=== PATIENT | female | born 1950 | race Caucasian/White ===

== ENCOUNTER 2017-10-23 20:00 | Inpatient (IN) | payer MEDICARE, MEDICAID ==
[~2017-10-23] VITALS: Ht 175.3 cm; Wt 52.2 kg
[~2017-10-23 20:00] MED LIST: BENA20TA3 PO; CLON0.5T23 PO; DULO60CA44 PO; FLUT1DIS3 IH
[2017-10-23 21:36] LABS: BASOPHILS % 0.6 % (0.0-2.0); CHLORIDE 92 mEq/L (98-107); EOSINOPHILS % 5.1 % (0.0-5.0); HEMATOCRIT. 36.3 % (36.0-48.0); HEMOGLOBIN. 11.8 g/dL (12.0-16.0); LYMPHOCYTES % 20.6 % (20.0-50.0); MEAN CORPUSCULAR HEMOGLOBIN 30.8 pg (28.0-32.0); MEAN CORPUSCULAR VOLUME 94.6 fL (81.0-99.0); MONOCYTES % 6.9 % (2.0-8.0); NEUTROPHILS % 66.8 % (40.0-76.0); PLATELET 275 x1000/uL (130-400); RED BLOOD CELL COUNT 3.83 mill/uL (4.2-5.4); RED CELL DISTRIBUTION WIDTH 13.1 % (11.6-14.6)
[2017-10-23 21:38] LABS: PROTHROMBIN TIME 10.4 sec (9.4-11.6)
[2017-10-23 21:49] LABS: CARBON DIOXIDE 43 mEq/L (21-32)
[2017-10-23] MEDS ORDERED: CEFTRIAXONE 1 G PREMIX 50 ML IV ONE (22:15)
[2017-10-23] MEDS ORDERED: AZITHROMYCIN 500 MG in DEXT 5% WATER 250 ML IV ONE (22:15)
[2017-10-23] MEDS ORDERED: SODIUM CHLORIDE 0.9% 1,000 ML IV SCH (22:29)
[2017-10-23] MEDS ORDERED: ACETAMINOPHEN 325MG TABLET PO PRN (22:30)
[2017-10-23] MEDS ORDERED: LEVOFLOXACIN 750MG PREMIX 150 ML IV ONE (22:30)
[2017-10-24] MEDS ORDERED: DULOXETINE HCL 60MG DR CAPSULE PO NR (01:00)
[2017-10-24] MEDS ORDERED: ENOXAPARIN 40MG/0.4ML SYR SUBCUT NR (01:15)
[2017-10-24] MEDS ORDERED: NITROGLYCERIN 0.4MG TABLET SL SL PRN (04:30)
[2017-10-24 05:17] LABS: HEMATOCRIT 34.3 % (36.0-48.0); HEMOGLOBIN 11.2 g/dL (12.0-16.0); MEAN CORPUSCULAR HEMOGLOBIN 30.7 pg (28.0-32.0); MEAN CORPUSCULAR VOLUME 94.3 fL (81.0-99.0); PLATELET 258 x1000/uL (130-400); RED BLOOD CELL COUNT 3.64 mill/uL (4.2-5.4); RED CELL DISTRIBUTION WIDTH 13.2 % (11.6-14.6)
[2017-10-24 05:45] LABS: CARBON DIOXIDE 37 mEq/L (21-32); CHLORIDE 96 mEq/L (98-107)
[2017-10-24] MEDS: SODIUM CHLORIDE 0.9% INJ 3ML FLUSH IVF SCH ×3 (06:00→21:59)
[2017-10-24] MEDS ORDERED: PREDNISONE 20MG TABLET PO SCH (09:00)
[2017-10-24 09:30] VITALS: BP 143/86
[2017-10-24] MEDS ORDERED: DOCUSATE SODIUM 100MG CAPSULE PO PRN (09:34)
[2017-10-24] MEDS ORDERED: ZOLP10TA6 PO (10:18)
[2017-10-24] MEDS ORDERED: FLUT1DIS6 IH (10:18)
[2017-10-24] MEDS ORDERED: HYDR-3280 PO (10:21)
[2017-10-24] MEDS ORDERED: HYDROCODONE/ACETAMINOPHEN 5/325MG TABLET PO NR (10:38)
[2017-10-24] MEDS: ENOXAPARIN 40MG/0.4ML SYR SUBCUT SCH (11:00)
[2017-10-24] MEDS: BUDESONIDE 0.5MG/2ML NEB HHN SCH (11:16)
[2017-10-24] MEDS: IPRATROPIUM/ALBUTEROL 0.5-3(2.5)MG/3ML NEB INH PRN ×2 (11:16→13:51)
[2017-10-24 12:00] VITALS: BP 138/78
[2017-10-24] MEDS: METHYLPREDNISOLONE SOD SUCC 40 MG/ML VIAL IV SCH ×2 (13:15→21:59)
[2017-10-24] MEDS: CLONAZEPAM 1MG TABLET PO SCH ×2 (13:15→21:59)
[2017-10-24 16:00] VITALS: BP 129/72
[2017-10-24 20:00] VITALS: BP 152/81
[2017-10-24] MEDS ORDERED: LEVOFLOXACIN 500MG PREMIX 100 ML IV SCH (23:00)
[2017-10-24] MEDS: GUAIFENESIN 200MG/10ML SUGAR FREE UDC PO PRN (23:16)
[2017-10-24] MEDS: HYDROCODONE/ACETAMINOPHEN 5/325MG TABLET PO PRN (23:26)
[2017-10-25] VITALS: BP 127/79
[2017-10-25] MEDS: TEMAZEPAM 15MG CAPSULE PO PRN (01:14)
[2017-10-25] MEDS: BUDESONIDE 0.5MG/2ML NEB HHN SCH ×3 (02:23→21:43)
[2017-10-25] MEDS: IPRATROPIUM/ALBUTEROL 0.5-3(2.5)MG/3ML NEB INH PRN ×4 (02:23→21:43)
[2017-10-25 04:00] VITALS: BP 125/65
[2017-10-25] MEDS: CLONAZEPAM 1MG TABLET PO SCH ×3 (06:00→22:35)
[2017-10-25] MEDS: SODIUM CHLORIDE 0.9% INJ 3ML FLUSH IVF SCH ×2 (06:00→22:37)
[2017-10-25 08:00] VITALS: BP 165/99
[2017-10-25] MEDS: DULOXETINE HCL 60MG DR CAPSULE PO SCH (08:54)
[2017-10-25] MEDS: METHYLPREDNISOLONE SOD SUCC 40 MG/ML VIAL IV SCH ×2 (08:54→22:35)
[2017-10-25] MEDS: ENOXAPARIN 40MG/0.4ML SYR SUBCUT SCH (09:00)
[2017-10-25] MEDS: HYDROCODONE/ACETAMINOPHEN 5/325MG TABLET PO PRN ×2 (09:30→18:35)
[2017-10-25 12:00] VITALS: BP 123/71
[2017-10-25] MEDS: AZTREONAM IV SCH (18:34)
[2017-10-25] MEDS: SODIUM CHLORIDE 0.9% IV SCH (18:34)
[2017-10-25 20:00] VITALS: BP 116/75
[2017-10-25] MEDS: LEVOFLOXACIN 500MG PREMIX 100 ML IV SCH (22:36)
[2017-10-26] VITALS: BP 118/70
[2017-10-26 04:00] VITALS: BP 128/68
[2017-10-26] MEDS: CLONAZEPAM 1MG TABLET PO SCH ×3 (05:24→21:32)
[2017-10-26] MEDS: HYDROCODONE/ACETAMINOPHEN 5/325MG TABLET PO PRN ×3 (05:24→15:14)
[2017-10-26] MEDS: SODIUM CHLORIDE 0.9% IV SCH ×2 (05:25→18:53)
[2017-10-26] MEDS: AZTREONAM IV SCH ×2 (05:25→18:53)
[2017-10-26] MEDS: SODIUM CHLORIDE 0.9% INJ 3ML FLUSH IVF SCH ×3 (05:26→20:51)
[2017-10-26 07:29] LABS: HEMATOCRIT. 36.1 % (36.0-48.0); HEMOGLOBIN. 11.9 g/dL (12.0-16.0); MEAN CORPUSCULAR HEMOGLOBIN 31.3 pg (28.0-32.0); MEAN CORPUSCULAR VOLUME 94.7 fL (81.0-99.0); MEAN PLATELET VOLUME 7.4 fl (7.4-10.4); PLATELET 279 x1000/uL (130-400); RED BLOOD CELL COUNT 3.81 mill/uL (4.2-5.4); RED CELL DISTRIBUTION WIDTH 13.4 % (11.6-14.6)
[2017-10-26 07:59] LABS: CARBON DIOXIDE 37 mEq/L (21-32); CHLORIDE 96 mEq/L (98-107)
[2017-10-26 08:00] VITALS: BP 113/74
[2017-10-26] MEDS: BUDESONIDE 0.5MG/2ML NEB HHN SCH ×2 (09:08→20:18)
[2017-10-26] MEDS: IPRATROPIUM/ALBUTEROL 0.5-3(2.5)MG/3ML NEB INH SCH ×4 (09:08→20:18)
[2017-10-26] MEDS: DULOXETINE HCL 60MG DR CAPSULE PO SCH (09:15)
[2017-10-26] MEDS: METHYLPREDNISOLONE SOD SUCC 40 MG/ML VIAL IV SCH ×2 (09:15→20:51)
[2017-10-26] MEDS: ENOXAPARIN 40MG/0.4ML SYR SUBCUT SCH (09:17)
[2017-10-26 12:00] VITALS: BP 116/74
[2017-10-26 12:45] LABS: PLATELET ESTIMATE NORMAL
[2017-10-26 16:00] VITALS: BP 137/84
[2017-10-26] MEDS: TEMAZEPAM 15MG CAPSULE PO PRN (17:29)
[2017-10-26 20:00] VITALS: BP 137/67
[2017-10-26] MEDS: LEVOFLOXACIN 500MG PREMIX 100 ML IV SCH (20:51)
[2017-10-27] VITALS: BP 126/64
[2017-10-27] MEDS: GUAIFENESIN 200MG/10ML SUGAR FREE UDC PO PRN ×2 (00:03→21:29)
[2017-10-27] MEDS ORDERED: MORPHINE SULFATE 2 MG/ML CPJ (NOT FOR IM USE) IV PRN (00:15)
[2017-10-27 04:00] VITALS: BP 117/90
[2017-10-27] MEDS: AZTREONAM IV SCH ×2 (06:03→17:44)
[2017-10-27] MEDS: SODIUM CHLORIDE 0.9% INJ 3ML FLUSH IVF SCH ×3 (06:03→21:14)
[2017-10-27] MEDS: CLONAZEPAM 1MG TABLET PO SCH ×3 (06:03→21:14)
[2017-10-27] MEDS: SODIUM CHLORIDE 0.9% IV SCH ×2 (06:03→17:44)
[2017-10-27] MEDS: BUDESONIDE 0.5MG/2ML NEB HHN SCH (07:27)
[2017-10-27] MEDS: IPRATROPIUM/ALBUTEROL 0.5-3(2.5)MG/3ML NEB INH SCH ×4 (07:27→20:02)
[2017-10-27 08:00] VITALS: BP 141/88
[2017-10-27] MEDS: METHYLPREDNISOLONE SOD SUCC 40 MG/ML VIAL IV SCH ×2 (09:45→21:14)
[2017-10-27] MEDS: DULOXETINE HCL 60MG DR CAPSULE PO SCH (09:45)
[2017-10-27] MEDS: ENOXAPARIN 40MG/0.4ML SYR SUBCUT SCH (09:46)
[2017-10-27 12:00] VITALS: BP 157/88
[2017-10-27 16:00] VITALS: BP 138/70
[2017-10-27] MEDS: HYDROCODONE/ACETAMINOPHEN 5/325MG TABLET PO PRN (17:46)
[2017-10-27 20:00] VITALS: BP 140/79
[2017-10-27] MEDS ORDERED: ZOLPIDEM TARTRATE 5MG TABLET PO PRN (21:00)
[2017-10-28] VITALS: BP 135/58
[2017-10-28] MEDS: IPRATROPIUM/ALBUTEROL 0.5-3(2.5)MG/3ML NEB INH SCH ×4 (00:18→15:56)
[2017-10-28] MEDS: ACETYLCYSTEINE 100MG/ML 10% VIAL 4ML INH SCH ×2 (00:20→09:19)
[2017-10-28 04:00] VITALS: BP 138/84
[2017-10-28] MEDS: AZTREONAM IV SCH (05:04)
[2017-10-28] MEDS: SODIUM CHLORIDE 0.9% IV SCH (05:04)
[2017-10-28] MEDS: SODIUM CHLORIDE 0.9% INJ 3ML FLUSH IVF SCH ×2 (05:05→12:52)
[2017-10-28] MEDS: CLONAZEPAM 1MG TABLET PO SCH ×2 (05:05→13:10)
[2017-10-28 08:00] VITALS: BP 146/83
[2017-10-28] MEDS: ENOXAPARIN 40MG/0.4ML SYR SUBCUT SCH (09:19)
[2017-10-28] MEDS: METHYLPREDNISOLONE SOD SUCC 40 MG/ML VIAL IV SCH (09:19)
[2017-10-28] MEDS: DULOXETINE HCL 60MG DR CAPSULE PO SCH (09:19)
[2017-10-28 12:00] VITALS: BP 146/83
[2017-10-28] MEDS: HYDROCODONE/ACETAMINOPHEN 5/325MG TABLET PO PRN (12:18)
[2017-10-28 14:12] VITALS: BP 155/89
== END 2017-10-28 17:17 | disposition home or self-care (01) | DRG 190 ==
LOC: ER 20:08 → 5WST 10-24 09:15
PROVIDERS: ADMIT Internal Medicine; ATTEND Internal Medicine
PROC: 5A09357 Assistance with Respiratory Ventilation, Less than 24 Consecutive Hours, Continuous Positive Airway Pressure (ICD-10-PCS; principal; 2017-10-25)
DX: J44.1 Chronic obstructive pulmonary disease with (acute) exacerbation (principal); J18.9 Pneumonia, unspecified organism; Z99.81 Dependence on supplemental oxygen; J44.0 Chronic obstructive pulmonary disease with (acute) lower respiratory infection; F17.200 Nicotine dependence, unspecified, uncomplicated; E78.00 Pure hypercholesterolemia, unspecified; F41.9 Anxiety disorder, unspecified; G89.29 Other chronic pain; I10 Essential (primary) hypertension; M54.5 Low back pain; Z88.0 Allergy status to penicillin; Z88.2 Allergy status to sulfonamides; Z88.8 Allergy status to other drugs, medicaments and biological substances
CPT/HCPCS: 36415; 71045; 80048; 80053; 83605; 84443; 85025; 85027; 85610; 87040; 93005; 94640; 96365; 96366; 96368; 99285; J0456; J1650; J1956; J2270; J2920; J3490; J7030; J7040; J7060; J7512; J7608; J7620; J7626

== ENCOUNTER 2018-01-02 23:14 | Inpatient (IN) | payer MEDICARE, MEDICAID ==
[~2018-01-02] VITALS: Ht 175.3 cm; Wt 53.5 kg
[~2018-01-02 23:14] MED LIST changes: -FLUT1DIS3 IH; +FLUT1DIS6 IH; +HYDR-3280 PO; +ZOLP10TA6 PO
[2018-01-02] MEDS ORDERED: METHYLPREDNISOLONE SOD SUCC 125 MG/2 ML VIAL IV STA (23:30)
[2018-01-02] MEDS ORDERED: IPRATROPIUM BROMIDE (0.02%) 0.5MG/2.5ML NEB HHN STA (23:30)
[2018-01-02] MEDS ORDERED: ALBUTEROL (0.083%) 2.5MG/3ML NEB HHN STA (23:30)
[2018-01-03 00:11] LABS: BASOPHILS % 0.1 % (0.0-2.0); EOSINOPHILS % 0.7 % (0.0-5.0); HEMATOCRIT. 33.4 % (36.0-48.0); HEMOGLOBIN. 11.1 g/dL (12.0-16.0); LYMPHOCYTES % 7.2 % (20.0-50.0); MEAN CORPUSCULAR HEMOGLOBIN 31.9 pg (28.0-32.0); MEAN CORPUSCULAR VOLUME 96.2 fL (81.0-99.0); MEAN PLATELET VOLUME 7.6 fl (7.4-10.4); MONOCYTES % 9.8 % (2.0-8.0); NEUTROPHILS % 82.2 % (40.0-76.0); PLATELET 345 x1000/uL (130-400); RED BLOOD CELL COUNT 3.47 mill/uL (4.2-5.4); RED CELL DISTRIBUTION WIDTH 13.6 % (11.6-14.6)
[2018-01-03 00:14] LABS: PROTHROMBIN TIME 10.3 sec (9.4-11.6)
[2018-01-03 00:16] LABS: CHLORIDE 90 mEq/L (98-107)
[2018-01-03] MEDS ORDERED: AZITHROMYCIN 500 MG in SODIUM CHLORIDE 0.9% 250 ML IV NR (01:00)
[2018-01-03] MEDS ORDERED: CEFTRIAXONE 1 G PREMIX 50 ML IV NR (01:00)
[2018-01-03] MEDS ORDERED: KETOROLAC 30MG/ML VIAL IV ONE (02:15)
[2018-01-03 09:00] VITALS: BP 123/65
[2018-01-03 09:45] VITALS: BP 123/65
[2018-01-03] MEDS ORDERED: AZITHROMYCIN 500 MG in DEXT 5% WATER 250 ML IV SCH (11:30)
[2018-01-03] MEDS ORDERED: CEFTRIAXONE 1 G PREMIX 50 ML IV SCH (11:30)
[2018-01-03] MEDS ORDERED: ACETAMINOPHEN 325MG TABLET PO PRN (11:30)
[2018-01-03] MEDS ORDERED: HYDROCODONE/ACETAMINOPHEN 5/325MG TABLET PO PRN (11:30)
[2018-01-03] MEDS ORDERED: CLONIDINE 0.1MG TABLET PO PRN (11:30)
[2018-01-03 12:00] VITALS: BP 98/64
[2018-01-03] MEDS: ENOXAPARIN 40MG/0.4ML SYR SUBCUT SCH ×2 (12:00→12:50)
[2018-01-03] MEDS: METHYLPREDNISOLONE SOD SUCC 40 MG/ML VIAL IV SCH ×2 (14:58→21:11)
[2018-01-03] MEDS: HYDROCODONE/ACETAMINOPHEN 5/325MG TABLET PO PRN ×2 (14:59→20:01)
[2018-01-03] MEDS: DULOXETINE HCL 60MG DR CAPSULE PO SCH (15:01)
[2018-01-03 16:00] VITALS: BP 111/62
[2018-01-03 16:14] LABS: HEMATOCRIT. 29.4 % (36.0-48.0); HEMOGLOBIN. 9.9 g/dL (12.0-16.0); MEAN CORPUSCULAR HEMOGLOBIN 32.2 pg (28.0-32.0); MEAN CORPUSCULAR VOLUME 95.7 fL (81.0-99.0); MEAN PLATELET VOLUME 7.5 fl (7.4-10.4); PLATELET 370 x1000/uL (130-400); RED BLOOD CELL COUNT 3.08 mill/uL (4.2-5.4); RED CELL DISTRIBUTION WIDTH 13.6 % (11.6-14.6)
[2018-01-03 16:33] LABS: CHLORIDE 90 mEq/L (98-107)
[2018-01-03 16:43] LABS: CREATINE KINASE 68 IU/L (26-192)
[2018-01-03 17:09] LABS: PLATELET ESTIMATE NORMAL
[2018-01-03 20:00] VITALS: BP 122/74
[2018-01-03] MEDS: IPRATROPIUM/ALBUTEROL 0.5-3(2.5)MG/3ML NEB INH PRN (20:45)
[2018-01-03] MEDS ORDERED: TEMAZEPAM 15MG CAPSULE PO PRN (20:45)
[2018-01-03] MEDS: SODIUM CHLORIDE 0.9% 1,000 ML IV SCH (21:12)
[2018-01-03] MEDS: NICOTINE 21MG PATCH TD SCH (21:12)
[2018-01-03] MEDS: FAMOTIDINE 20MG/2ML VIAL IV SCH (21:12)
[2018-01-03] MEDS: CLONAZEPAM 0.5MG TABLET PO PRN (21:15)
[2018-01-03] MEDS ORDERED: ZOLPIDEM TARTRATE 5MG TABLET PO PRN (23:30)
[2018-01-03 23:58] VITALS: BP 124/80
[2018-01-04 00:26] LABS: CREATINE KINASE 86 IU/L (26-192)
[2018-01-04 03:50] VITALS: BP 160/88
[2018-01-04] MEDS: METHYLPREDNISOLONE SOD SUCC 40 MG/ML VIAL IV SCH ×3 (06:08→21:32)
[2018-01-04] MEDS: CEFTRIAXONE 1 G PREMIX 50 ML IV SCH (06:08)
[2018-01-04 06:32] LABS: HEMATOCRIT. 27.8 % (36.0-48.0); HEMOGLOBIN. 9.2 g/dL (12.0-16.0); MEAN CORPUSCULAR VOLUME 93.8 fL (81.0-99.0); MEAN PLATELET VOLUME 7.5 fl (7.4-10.4); PLATELET 383 x1000/uL (130-400); RED BLOOD CELL COUNT 2.96 mill/uL (4.2-5.4); RED CELL DISTRIBUTION WIDTH 13.6 % (11.6-14.6)
[2018-01-04 07:11] LABS: CHLORIDE 93 mEq/L (98-107)
[2018-01-04 07:22] LABS: LDL CHOLESTEROL 80 mg/dL (5-100)
[2018-01-04 07:24] LABS: T4 FREE 1.06 ng/dL (0.76-1.46)
[2018-01-04 07:25] LABS: HDL CHOLESTEROL 41 mg/dL (40-59)
[2018-01-04 08:00] VITALS: BP 110/62
[2018-01-04] MEDS: BENAZEPRIL 20MG TABLET PO SCH (08:42)
[2018-01-04] MEDS: AZITHROMYCIN 500 MG in DEXT 5% WATER 500 ML IV SCH (08:43)
[2018-01-04] MEDS: DULOXETINE HCL 60MG DR CAPSULE PO SCH (08:43)
[2018-01-04] MEDS: FAMOTIDINE 20MG/2ML VIAL IV SCH ×2 (08:43→21:32)
[2018-01-04] MEDS: ENOXAPARIN 40MG/0.4ML SYR SUBCUT SCH (08:48)
[2018-01-04] MEDS: IPRATROPIUM/ALBUTEROL 0.5-3(2.5)MG/3ML NEB INH PRN ×2 (09:59→16:44)
[2018-01-04 11:24] LABS: PLATELET ESTIMATE NORMAL
[2018-01-04 12:00] VITALS: BP 118/68
[2018-01-04] MEDS: SODIUM CHLORIDE 0.9% 1,000 ML IV SCH ×2 (13:27→19:23)
[2018-01-04 13:50] LABS: HEMATOCRIT 30.2 % (36.0-48.0); HEMOGLOBIN 9.8 g/dL (12.0-16.0); MEAN CORPUSCULAR HEMOGLOBIN 30.6 pg (28.0-32.0); MEAN CORPUSCULAR VOLUME 94.3 fL (81.0-99.0)
[2018-01-04 13:51] LABS: PLATELET 427 x1000/uL (130-400); RED CELL DISTRIBUTION WIDTH 13.6 % (11.6-14.6)
[2018-01-04] MEDS: HYDROCODONE/ACETAMINOPHEN 5/325MG TABLET PO PRN (15:56)
[2018-01-04] MEDS: CLONAZEPAM 0.5MG TABLET PO PRN (15:57)
[2018-01-04 16:00] VITALS: BP 120/71
[2018-01-04 16:02] VITALS: BP 104/64
[2018-01-04 19:55] VITALS: BP 113/64
[2018-01-04] MEDS: NICOTINE 21MG PATCH TD SCH (21:00)
[2018-01-05] VITALS: BP 122/79
[2018-01-05 04:00] VITALS: BP 151/86
[2018-01-05] MEDS: SODIUM CHLORIDE 0.9% 1,000 ML IV SCH ×2 (05:01→19:08)
[2018-01-05] MEDS: METHYLPREDNISOLONE SOD SUCC 40 MG/ML VIAL IV SCH ×3 (06:35→21:58)
[2018-01-05] MEDS: CEFTRIAXONE 1 G PREMIX 50 ML IV SCH (06:35)
[2018-01-05 06:56] LABS: HEMATOCRIT 31.2 % (36.0-48.0); HEMOGLOBIN 10.3 g/dL (12.0-16.0); MEAN CORPUSCULAR HEMOGLOBIN 31.7 pg (28.0-32.0); MEAN CORPUSCULAR VOLUME 96.2 fL (81.0-99.0); PLATELET 424 x1000/uL (130-400); RED BLOOD CELL COUNT 3.25 mill/uL (4.2-5.4); RED CELL DISTRIBUTION WIDTH 13.6 % (11.6-14.6)
[2018-01-05 07:29] LABS: CHLORIDE 102 mEq/L (98-107)
[2018-01-05] MEDS: IPRATROPIUM/ALBUTEROL 0.5-3(2.5)MG/3ML NEB INH PRN ×2 (07:47→15:01)
[2018-01-05 08:00] VITALS: BP 144/88
[2018-01-05] MEDS: AZITHROMYCIN 500 MG in DEXT 5% WATER 500 ML IV SCH (08:03)
[2018-01-05] MEDS: DULOXETINE HCL 60MG DR CAPSULE PO SCH (08:03)
[2018-01-05] MEDS: CLONAZEPAM 0.5MG TABLET PO PRN ×2 (08:03→17:31)
[2018-01-05] MEDS: FAMOTIDINE 20MG/2ML VIAL IV SCH ×2 (08:04→21:58)
[2018-01-05] MEDS: BENAZEPRIL 20MG TABLET PO SCH (08:04)
[2018-01-05] MEDS: ENOXAPARIN 40MG/0.4ML SYR SUBCUT SCH (08:13)
[2018-01-05] MEDS ORDERED: AZITHROMYCIN 500 MG in DEXT 5% WATER 250 ML IV SCH (08:21)
[2018-01-05] MEDS ORDERED: SODIUM POLYSTYRENE SULFONATE 15 G/60 ML BOT PO NR (10:42)
[2018-01-05] MEDS: HYDROCODONE/ACETAMINOPHEN 5/325MG TABLET PO PRN ×3 (10:55→20:31)
[2018-01-05 11:42] VITALS: BP 140/88
[2018-01-05 15:54] VITALS: BP 134/76
[2018-01-05 20:00] VITALS: BP 141/71
[2018-01-05] MEDS: NICOTINE 21MG PATCH TD SCH (20:31)
[2018-01-06] VITALS (7 sets, daily range): BP systolic 129–154; BP diastolic 75–88
[2018-01-06] MEDS: CLONAZEPAM 0.5MG TABLET PO PRN ×2 (05:25→16:26)
[2018-01-06] MEDS: SODIUM CHLORIDE 0.9% 1,000 ML IV SCH (05:34)
[2018-01-06] MEDS: METHYLPREDNISOLONE SOD SUCC 40 MG/ML VIAL IV SCH ×3 (05:44→20:56)
[2018-01-06] MEDS: CEFTRIAXONE 1 G PREMIX 50 ML IV SCH (05:44)
[2018-01-06] MEDS: HYDROCODONE/ACETAMINOPHEN 5/325MG TABLET PO PRN ×3 (05:45→14:56)
[2018-01-06 06:46] LABS: HEMATOCRIT. 32.2 % (36.0-48.0); HEMOGLOBIN. 10.4 g/dL (12.0-16.0); MEAN CORPUSCULAR HEMOGLOBIN 30.9 pg (28.0-32.0); MEAN PLATELET VOLUME 6.9 fl (7.4-10.4); PLATELET 466 x1000/uL (130-400); RED BLOOD CELL COUNT 3.36 mill/uL (4.2-5.4)
[2018-01-06 07:31] LABS: CHLORIDE 102 mEq/L (98-107)
[2018-01-06] MEDS: DULOXETINE HCL 60MG DR CAPSULE PO SCH (08:48)
[2018-01-06] MEDS: FAMOTIDINE 20MG/2ML VIAL IV SCH ×2 (08:48→20:56)
[2018-01-06] MEDS: BENAZEPRIL 20MG TABLET PO SCH (08:48)
[2018-01-06] MEDS: ENOXAPARIN 40MG/0.4ML SYR SUBCUT SCH ×2 (08:49→08:53)
[2018-01-06] MEDS ORDERED: AZITHROMYCIN 500 MG TABLET PO SCH (09:00)
[2018-01-06] MEDS: NICOTINE 21MG PATCH TD SCH (20:56)
[2018-01-06] MEDS: IPRATROPIUM/ALBUTEROL 0.5-3(2.5)MG/3ML NEB INH PRN (21:12)
[2018-01-07 03:27] LABS: PLATELET ESTIMATE SLIGHTLY INCREASED
== END 2018-01-06 23:15 | DRG 190 ==
LOC: ER 23:14 → OBSVTOIN 01-03 01:07 → INTOOBSV 01-03 01:07 → 6WST 01-03 01:07 → ENRESERV 01-03 07:14
PROVIDERS: ADMIT Internal Medicine; ATTEND Internal Medicine
DX: J44.0 Chronic obstructive pulmonary disease with (acute) lower respiratory infection (principal); J18.9 Pneumonia, unspecified organism; E87.5 Hyperkalemia; J44.1 Chronic obstructive pulmonary disease with (acute) exacerbation; E86.0 Dehydration; T38.0X5A Adverse effect of glucocorticoids and synthetic analogues, initial encounter; R73.9 Hyperglycemia, unspecified; R91.1 Solitary pulmonary nodule; D64.9 Anemia, unspecified; F17.210 Nicotine dependence, cigarettes, uncomplicated; F32.9 Major depressive disorder, single episode, unspecified; F41.9 Anxiety disorder, unspecified; I10 Essential (primary) hypertension
CPT/HCPCS: 36415; 71045; 71250; 80048; 80053; 80061; 82550; 83036; 83605; 83880; 84439; 84443; 84484; 85025; 85027; 85610; 87040; 87804; 93005; 93306; 94640; 96365; 96366; 96367; 96375; 97116; 97162; 97530; 99285; J0456; J0696; J1650; J1885; J2920; J2930; J3490; J7030; J7050; J7060; J7611; J7620

== ENCOUNTER 2018-05-10 14:33 | Inpatient (IN) | payer MEDICARE ==
[~2018-05-10] VITALS: Ht 175.3 cm; Wt 60.8 kg
[~2018-05-10 14:33] MED LIST changes: +BENA20TA10 PO; -BENA20TA3 PO
[2018-05-10] MEDS ORDERED: IPRATROPIUM BROMIDE (0.02%) 0.5MG/2.5ML NEB HHN STA (17:29)
[2018-05-10] MEDS ORDERED: ALBUTEROL (0.083%) 2.5MG/3ML NEB HHN STA (17:29)
[2018-05-10] MEDS ORDERED: METHYLPREDNISOLONE SOD SUCC 125 MG/2 ML VIAL IV STA (17:29)
[2018-05-10] MEDS ORDERED: IPRATROPIUM/ALBUTEROL 0.5-3(2.5)MG/3ML NEB ONE (17:52)
[2018-05-10] MEDS ORDERED: ALBUTEROL (0.5%) 2.5MG/0.5ML NEB HHN ONE (17:52)
[2018-05-10 18:21] LABS: BG BASE EXCESS 9.6 mmol/L (-2.0-2.0); BG CARBOXYHEMOGLOBIN 0.7 % (0.5-1.5); BG FRACTION INSPIRED OXYGEN 60; BG HCO3 ACT 38.2 mmol/L (22.0-26.0); BG OXYHEMOGLOBIN 98.3 % (94.0-97.0); BG PCO2 73.3 mmHg (35.0-45.0); BG PH 7.335 (7.350-7.450); BG PO2 182.9 mmHg (75.0-100.0); BG SAMPLE SITE RIGHT BRACHIAL; BG TOTAL HEMOGLOBIN 12.7 g/dL (12.0-18.0)
[2018-05-10 19:07] LABS: CHLORIDE 94 mEq/L (98-107)
[2018-05-10 19:09] LABS: BASOPHILS % 0.2 % (0.0-2.0); EOSINOPHILS % 2.1 % (0.0-5.0); HEMATOCRIT. 37.7 % (36.0-48.0); HEMOGLOBIN. 12.3 g/dL (12.0-16.0); LYMPHOCYTES % 17.6 % (20.0-50.0); MEAN CORPUSCULAR HEMOGLOBIN 30.5 pg (28.0-32.0); MEAN CORPUSCULAR VOLUME 93.4 fL (81.0-99.0); MEAN PLATELET VOLUME 7.8 fl (7.4-10.4); MONOCYTES % 7.1 % (2.0-8.0); PLATELET 215 x1000/uL (130-400); RED BLOOD CELL COUNT 4.04 mill/uL (4.2-5.4); RED CELL DISTRIBUTION WIDTH 12.7 % (11.6-14.6)
[2018-05-10 22:10] VITALS: BP 133/72
[2018-05-10] MEDS ORDERED: OMEP20CA10 PO (23:15)
[2018-05-10] MEDS ORDERED: IPRATROPIUM/ALBUTEROL 0.5-3(2.5)MG/3ML NEB HHN PRN (23:15)
[2018-05-10] MEDS ORDERED: TIOT4MIS3 IH (23:15)
[2018-05-11] MEDS ORDERED: LEVOFLOXACIN 500MG PREMIX 100 ML IV NR
[2018-05-11] MEDS: IPRATROPIUM/ALBUTEROL 0.5-3(2.5)MG/3ML NEB HHN SCH ×6 (00:15→21:22)
[2018-05-11] MEDS: SODIUM CHLORIDE 0.45% 1,000 ML IV SCH (01:21)
[2018-05-11 04:00] VITALS: BP 116/76
[2018-05-11] MEDS: HYDROCODONE/ACETAMINOPHEN 5/325MG TABLET PO PRN ×3 (04:23→15:59)
[2018-05-11] MEDS: METHYLPREDNISOLONE SOD SUCC 40 MG/ML VIAL IV SCH ×3 (06:16→21:17)
[2018-05-11 08:00] VITALS: BP 130/80
[2018-05-11] MEDS: ENOXAPARIN 30MG/0.3ML SYR SUBCUT SCH (08:11)
[2018-05-11] MEDS: ASPIRIN 81MG TABLET PO SCH (08:11)
[2018-05-11] MEDS ORDERED: PANTOPRAZOLE SODIUM 40 MG/VIAL IV SCH (09:00)
[2018-05-11 12:00] VITALS: BP 148/82
[2018-05-11] MEDS ORDERED: MORPHINE SULFATE 4 MG/ML CPJ (NOT FOR IM USE) IV SCH (12:00)
[2018-05-11] MEDS ORDERED: NITROGLYCERIN 0.4MG TABLET SL SL PRN (12:15)
[2018-05-11 12:26] LABS: BG BASE EXCESS 6.9 mmol/L (-2.0-2.0); BG CARBOXYHEMOGLOBIN 0.8 % (0.5-1.5); BG DEOXYHEMOGLOBIN 3.6 % (0.0-5.0); BG FRACTION INSPIRED OXYGEN 28; BG HCO3 ACT 34.5 mmol/L (22.0-26.0); BG METHEMOGLOBIN 0.2 % (0.0-1.5); BG OXYGEN SATURATION 96.4 % (92.0-98.5); BG OXYHEMOGLOBIN 95.4 % (94.0-97.0); BG PCO2 63.7 mmHg (35.0-45.0); BG PH 7.351 (7.350-7.450); BG PO2 86.7 mmHg (75.0-100.0); BG SAMPLE SITE RIGHT RADIAL; BG TOTAL HEMOGLOBIN 12.6 g/dL (12.0-18.0); BG VENT MODE NASAL CANNULA
[2018-05-11 13:58] LABS: CHLORIDE 95 mEq/L (98-107)
[2018-05-11] MEDS: PANTOPRAZOLE 40MG DR TABLET PO SCH ×2 (15:45→21:17)
[2018-05-11 16:00] VITALS: BP 137/74
[2018-05-11] MEDS ORDERED: NICOTINE 14MG PATCH TD NR (16:00)
[2018-05-11 17:00] LABS: HEMATOCRIT 37.5 % (36.0-48.0); HEMOGLOBIN 12.4 g/dL (12.0-16.0); MEAN CORPUSCULAR HEMOGLOBIN 30.7 pg (28.0-32.0); MEAN CORPUSCULAR VOLUME 92.9 fL (81.0-99.0); PLATELET 223 x1000/uL (130-400); RED BLOOD CELL COUNT 4.03 mill/uL (4.2-5.4); RED CELL DISTRIBUTION WIDTH 12.9 % (11.6-14.6)
[2018-05-11 20:00] VITALS: BP 113/63
[2018-05-11] MEDS ORDERED: BENAZEPRIL 20MG TABLET PO NR (20:30)
[2018-05-11] MEDS ORDERED: DULOXETINE HCL 60MG DR CAPSULE PO NR (20:30)
[2018-05-11 20:35] VITALS: BP 150/81
[2018-05-11] MEDS ORDERED: LEVOFLOXACIN 250MG PREMIX 50 ML IV SCH (23:00)
[2018-05-12] VITALS: BP 131/77
[2018-05-12] MEDS: IPRATROPIUM/ALBUTEROL 0.5-3(2.5)MG/3ML NEB HHN SCH ×6 (00:07→21:42)
[2018-05-12] MEDS: HYDROCODONE/ACETAMINOPHEN 5/325MG TABLET PO PRN ×2 (01:13→08:18)
[2018-05-12 04:40] VITALS: BP 128/77
[2018-05-12] MEDS: METHYLPREDNISOLONE SOD SUCC 40 MG/ML VIAL IV SCH ×3 (05:38→22:00)
[2018-05-12] MEDS: SODIUM CHLORIDE 0.45% 1,000 ML IV SCH (05:39)
[2018-05-12 07:15] LABS: BG BASE EXCESS 8.6 mmol/L (-2.0-2.0); BG BILEVEL POS AIRWAY PRESSURE 15/5; BG CARBOXYHEMOGLOBIN 0.2 % (0.5-1.5); BG DEOXYHEMOGLOBIN 2.8 % (0.0-5.0); BG HCO3 ACT 36.9 mmol/L (22.0-26.0); BG METHEMOGLOBIN 0.3 % (0.0-1.5); BG OXYGEN SATURATION 97.2 % (92.0-98.5); BG OXYHEMOGLOBIN 96.7 % (94.0-97.0); BG PCO2 70.6 mmHg (35.0-45.0); BG PH 7.336 (7.350-7.450); BG PO2 103.2 mmHg (75.0-100.0); BG SAMPLE SITE RIGHT RADIAL; BG TOTAL HEMOGLOBIN 12.5 g/dL (12.0-18.0); BG VENT MODE MASK - BIPAP; BG VENT RATE 18 set
[2018-05-12 07:23] LABS: HEMATOCRIT 35.9 % (36.0-48.0); HEMOGLOBIN 11.8 g/dL (12.0-16.0); MEAN CORPUSCULAR HEMOGLOBIN 30.5 pg (28.0-32.0); MEAN CORPUSCULAR VOLUME 92.8 fL (81.0-99.0); PLATELET 196 x1000/uL (130-400); RED BLOOD CELL COUNT 3.87 mill/uL (4.2-5.4); RED CELL DISTRIBUTION WIDTH 12.6 % (11.6-14.6)
[2018-05-12 07:27] LABS: CHLORIDE 99 mEq/L (98-107)
[2018-05-12 08:00] VITALS: BP 153/89
[2018-05-12] MEDS: PANTOPRAZOLE 40MG DR TABLET PO SCH ×2 (08:15→22:00)
[2018-05-12] MEDS: ENOXAPARIN 30MG/0.3ML SYR SUBCUT SCH (09:00)
[2018-05-12] MEDS: NICOTINE 14MG PATCH TD SCH ×2 (09:00→09:44)
[2018-05-12] MEDS: ASPIRIN 81MG TABLET PO SCH (09:44)
[2018-05-12] MEDS: DULOXETINE HCL 60MG DR CAPSULE PO SCH (09:45)
[2018-05-12] MEDS: BENAZEPRIL 20MG TABLET PO SCH (09:46)
[2018-05-12 12:00] VITALS: BP 138/72
[2018-05-12] MEDS: HYDROCODONE/APAP 7.5/325MG 1 TAB TABLET PO PRN ×2 (15:07→18:02)
[2018-05-12] MEDS: CLONAZEPAM 0.5MG TABLET PO PRN (15:12)
[2018-05-12 16:00] VITALS: BP 148/86
[2018-05-12] MEDS ORDERED: SIMETHICONE 80MG TABLET CHEW PO PRN (16:15)
[2018-05-12] MEDS: METOCLOPRAMIDE HCL 10MG/2ML VIAL IV SCH (17:31)
[2018-05-12 20:00] VITALS: BP 141/74
[2018-05-13] VITALS: BP 133/77
[2018-05-13] MEDS: SODIUM CHLORIDE 0.45% 1,000 ML IV SCH
[2018-05-13] MEDS: HYDROCODONE/APAP 7.5/325MG 1 TAB TABLET PO PRN ×2 (00:11→11:32)
[2018-05-13] MEDS: METOCLOPRAMIDE HCL 10MG/2ML VIAL IV SCH ×4 (00:11→17:38)
[2018-05-13] MEDS: IPRATROPIUM/ALBUTEROL 0.5-3(2.5)MG/3ML NEB HHN SCH ×6 (01:24→21:13)
[2018-05-13 04:00] VITALS: BP 137/75
[2018-05-13 06:35] LABS: BASOPHILS % 0.4 % (0.0-2.0); EOSINOPHILS % 0.5 % (0.0-5.0); HEMATOCRIT. 34.3 % (36.0-48.0); HEMOGLOBIN. 11.7 g/dL (12.0-16.0); LYMPHOCYTES % 20.9 % (20.0-50.0); MEAN CORPUSCULAR HEMOGLOBIN 31.6 pg (28.0-32.0); MEAN CORPUSCULAR VOLUME 92.5 fL (81.0-99.0); MEAN PLATELET VOLUME 7.8 fl (7.4-10.4); MONOCYTES % 6.4 % (2.0-8.0); NEUTROPHILS % 71.8 % (40.0-76.0); PLATELET 199 x1000/uL (130-400); RED CELL DISTRIBUTION WIDTH 13.1 % (11.6-14.6)
[2018-05-13] MEDS: PANTOPRAZOLE 40MG DR TABLET PO SCH (06:36)
[2018-05-13] MEDS: CLONAZEPAM 0.5MG TABLET PO PRN ×2 (06:36→18:37)
[2018-05-13] MEDS: METHYLPREDNISOLONE SOD SUCC 40 MG/ML VIAL IV SCH ×3 (06:36→22:12)
[2018-05-13 07:02] LABS: CHLORIDE 97 mEq/L (98-107)
[2018-05-13 08:00] VITALS: BP 147/87
[2018-05-13] MEDS: ENOXAPARIN 30MG/0.3ML SYR SUBCUT SCH (09:00)
[2018-05-13] MEDS: BENAZEPRIL 20MG TABLET PO SCH (09:48)
[2018-05-13] MEDS: NICOTINE 14MG PATCH TD SCH (09:49)
[2018-05-13] MEDS: DULOXETINE HCL 60MG DR CAPSULE PO SCH (09:49)
[2018-05-13] MEDS: ASPIRIN 81MG TABLET PO SCH (09:49)
[2018-05-13] MEDS ORDERED: HYDROCODONE/APAP 7.5/325MG 1 TAB TABLET ONE (11:36)
[2018-05-13 12:00] VITALS: BP 141/83
[2018-05-13 16:00] VITALS: BP 138/77
[2018-05-13 20:00] VITALS: BP 152/77
[2018-05-13] MEDS: FAMOTIDINE 20MG TABLET PO SCH (22:12)
[2018-05-14] VITALS (8 sets, daily range): BP systolic 117–178; BP diastolic 76–159
[2018-05-14] MEDS: IPRATROPIUM/ALBUTEROL 0.5-3(2.5)MG/3ML NEB HHN SCH ×6 (00:39→20:51)
[2018-05-14] MEDS: HYDROCODONE/APAP 7.5/325MG 1 TAB TABLET PO PRN ×2 (01:18→11:16)
[2018-05-14] MEDS: METOCLOPRAMIDE HCL 10MG/2ML VIAL IV SCH ×5 (01:20→18:00)
[2018-05-14] MEDS: SODIUM CHLORIDE 0.45% 1,000 ML IV SCH (06:29)
[2018-05-14] MEDS: METHYLPREDNISOLONE SOD SUCC 40 MG/ML VIAL IV SCH ×4 (06:29→22:00)
[2018-05-14] MEDS: DULOXETINE HCL 60MG DR CAPSULE PO SCH (08:35)
[2018-05-14] MEDS: BENAZEPRIL 20MG TABLET PO SCH (08:35)
[2018-05-14] MEDS: CLONAZEPAM 0.5MG TABLET PO PRN (08:35)
[2018-05-14] MEDS: ASPIRIN 81MG TABLET PO SCH (08:36)
[2018-05-14] MEDS: NICOTINE 14MG PATCH TD SCH (08:36)
[2018-05-14] MEDS: ENOXAPARIN 30MG/0.3ML SYR SUBCUT SCH (08:36)
[2018-05-14] MEDS: FAMOTIDINE 20MG TABLET PO SCH ×2 (08:36→21:58)
[2018-05-14] MEDS ORDERED: IOHEXOL-300 100 ML BOTTLE ONE (17:45)
[2018-05-14] MEDS: ATORVASTATIN CALCIUM 20MG TABLET PO SCH ×2 (21:00→21:58)
[2018-05-14] MEDS ORDERED: GUAIFENESIN/CODEINE 100-10MG/5ML UDC PO PRN (21:01)
[2018-05-15] VITALS: BP 149/80
[2018-05-15] MEDS ORDERED: IOHEXOL-300 100 ML BOTTLE ONE (00:03)
[2018-05-15] MEDS: CLONAZEPAM 0.5MG TABLET PO PRN (00:23)
[2018-05-15] MEDS: IPRATROPIUM/ALBUTEROL 0.5-3(2.5)MG/3ML NEB HHN SCH ×6 (01:13→19:58)
[2018-05-15 04:00] VITALS: BP 153/76
[2018-05-15] MEDS: SODIUM CHLORIDE 0.45% 1,000 ML IV SCH (05:39)
[2018-05-15] MEDS: METHYLPREDNISOLONE SOD SUCC 40 MG/ML VIAL IV SCH ×3 (05:40→21:33)
[2018-05-15] MEDS: METOCLOPRAMIDE HCL 10MG/2ML VIAL IV SCH ×5 (05:40→23:50)
[2018-05-15 08:00] VITALS: BP 140/74
[2018-05-15] MEDS: DULOXETINE HCL 60MG DR CAPSULE PO SCH (08:47)
[2018-05-15] MEDS: ENOXAPARIN 30MG/0.3ML SYR SUBCUT SCH (08:48)
[2018-05-15] MEDS: FAMOTIDINE 20MG TABLET PO SCH (08:48)
[2018-05-15] MEDS: ASPIRIN 81MG TABLET PO SCH (08:48)
[2018-05-15] MEDS: NICOTINE 14MG PATCH TD SCH (08:49)
[2018-05-15] MEDS: BENAZEPRIL 20MG TABLET PO SCH (08:56)
[2018-05-15 12:30] VITALS: BP 125/71
[2018-05-15] MEDS ORDERED: BISACODYL 10MG SUPP PR PRN (13:45)
[2018-05-15] MEDS ORDERED: BISACODYL 5MG TABLET PO PRN (13:45)
[2018-05-15] MEDS ORDERED: PANTOPRAZOLE SODIUM 40 MG/VIAL IV SCH (13:45)
[2018-05-15] MEDS ORDERED: BISACODYL 5MG TABLET PO SCH (13:45)
[2018-05-15] MEDS ORDERED: TRAMADOL 50MG TABLET PO PRN (14:00)
[2018-05-15] MEDS: DOCUSATE SODIUM 250MG CAPSULE PO SCH (14:04)
[2018-05-15 16:00] VITALS: BP 125/77
[2018-05-15 20:00] VITALS: BP 132/76
[2018-05-15] MEDS: ATORVASTATIN CALCIUM 20MG TABLET PO SCH (20:30)
[2018-05-15] MEDS: HYDROCODONE/APAP 7.5/325MG 1 TAB TABLET PO PRN (20:31)
[2018-05-16] VITALS: BP 130/70
[2018-05-16] MEDS: IPRATROPIUM/ALBUTEROL 0.5-3(2.5)MG/3ML NEB HHN SCH ×5 (00:26→15:30)
[2018-05-16 04:00] VITALS: BP 140/76
[2018-05-16] MEDS: METHYLPREDNISOLONE SOD SUCC 40 MG/ML VIAL IV SCH ×2 (05:15→14:00)
[2018-05-16] MEDS: METOCLOPRAMIDE HCL 10MG/2ML VIAL IV SCH ×3 (05:15→18:00)
[2018-05-16] MEDS: HYDROCODONE/APAP 7.5/325MG 1 TAB TABLET PO PRN (05:41)
[2018-05-16] MEDS ORDERED: OMEPRAZOLE 20MG CAPSULE EXTENDED RELEASE PO SCH (07:40)
[2018-05-16 08:00] VITALS: BP 133/88
[2018-05-16] MEDS: DULOXETINE HCL 60MG DR CAPSULE PO SCH (08:44)
[2018-05-16] MEDS: ASPIRIN 81MG TABLET PO SCH (08:44)
[2018-05-16] MEDS: NICOTINE 14MG PATCH TD SCH (08:45)
[2018-05-16] MEDS: ENOXAPARIN 30MG/0.3ML SYR SUBCUT SCH (08:45)
[2018-05-16] MEDS: DOCUSATE SODIUM 250MG CAPSULE PO SCH (08:46)
[2018-05-16] MEDS: BENAZEPRIL 20MG TABLET PO SCH (08:52)
[2018-05-16 12:00] VITALS: BP 136/75
[2018-05-16 13:52] VITALS: BP 110/64
[2018-05-16 16:00] VITALS: BP 110/62
== END 2018-05-16 18:38 | DRG 189 ==
LOC: ER 14:33 → EDBEDREQ 17:37 → 7WST 20:40 → EDBEDREQ 20:47 → ENRESERV 21:21
PROVIDERS: ADMIT Internal Medicine; ATTEND Internal Medicine
PROC: 5A09357 Assistance with Respiratory Ventilation, Less than 24 Consecutive Hours, Continuous Positive Airway Pressure (ICD-10-PCS; principal; 2018-05-11)
PROC: 5A09357 Assistance with Respiratory Ventilation, Less than 24 Consecutive Hours, Continuous Positive Airway Pressure (ICD-10-PCS; 2018-05-12)
PROC: 5A09357 Assistance with Respiratory Ventilation, Less than 24 Consecutive Hours, Continuous Positive Airway Pressure (ICD-10-PCS; 2018-05-13)
PROC: 5A09357 Assistance with Respiratory Ventilation, Less than 24 Consecutive Hours, Continuous Positive Airway Pressure (ICD-10-PCS; 2018-05-14)
PROC: 5A09357 Assistance with Respiratory Ventilation, Less than 24 Consecutive Hours, Continuous Positive Airway Pressure (ICD-10-PCS; 2018-05-15)
PROC: 5A09357 Assistance with Respiratory Ventilation, Less than 24 Consecutive Hours, Continuous Positive Airway Pressure (ICD-10-PCS; 2018-05-16)
DX: J96.22 Acute and chronic respiratory failure with hypercapnia (principal); J44.1 Chronic obstructive pulmonary disease with (acute) exacerbation; E87.2 Acidosis; F11.20 Opioid dependence, uncomplicated; K56.7 Ileus, unspecified; F17.210 Nicotine dependence, cigarettes, uncomplicated; F41.9 Anxiety disorder, unspecified; F32.9 Major depressive disorder, single episode, unspecified; E86.0 Dehydration; R73.9 Hyperglycemia, unspecified; E78.5 Hyperlipidemia, unspecified; F41.1 Generalized anxiety disorder; G89.29 Other chronic pain; K59.00 Constipation, unspecified; R07.81 Pleurodynia; I10 Essential (primary) hypertension; R91.1 Solitary pulmonary nodule; Z87.19 Personal history of other diseases of the digestive system; Z99.81 Dependence on supplemental oxygen; Z91.19 Patient's noncompliance with other medical treatment and regimen; Z88.1 Allergy status to other antibiotic agents; Z88.0 Allergy status to penicillin; Z88.2 Allergy status to sulfonamides; Z79.899 Other long term (current) drug therapy
CPT/HCPCS: 36415; 36600; 71045; 71260; 74018; 80048; 80053; 80061; 82375; 82805; 84484; 85025; 85027; 85610; 93005; 94640; 94660; 96365; 96375; 97116; 97162; 99285; C9113; J1650; J1956; J2270; J2765; J2920; J2930; J7030; J7040; J7611; J7620; Q9967

== ENCOUNTER 2018-09-16 11:31 | Inpatient (IN) | payer MEDICARE ==
[~2018-09-16] VITALS: Ht 175.3 cm; Wt 69.9 kg
[~2018-09-16 11:31] MED LIST changes: +OMEP20CA10 PO; +TIOT4MIS3 IH
[2018-09-16] MEDS ORDERED: METHYLPREDNISOLONE SOD SUCC 125 MG/2 ML VIAL IV STA (11:49)
[2018-09-16] MEDS ORDERED: ALBUTEROL (0.083%) 2.5MG/3ML NEB HHN STA (11:49)
[2018-09-16] MEDS ORDERED: MAGNESIUM 2 G PREMIX 50 ML IV STA (11:49)
[2018-09-16] MEDS ORDERED: IPRATROPIUM BROMIDE (0.02%) 0.5MG/2.5ML NEB HHN STA (11:49)
[2018-09-16] MEDS ORDERED: LEVOFLOXACIN 500MG PREMIX 100 ML IV ONE (12:00)
[2018-09-16] MEDS ORDERED: ALBUTEROL (0.5%) 2.5MG/0.5ML NEB HHN ONE (12:09)
[2018-09-16 12:16] LABS: BASOPHILS % 0.3 % (0.0-2.0); EOSINOPHILS % 4.6 % (0.0-5.0); HEMATOCRIT. 43.2 % (36.0-48.0); HEMOGLOBIN. 14.5 g/dL (12.0-16.0); LYMPHOCYTES % 15.9 % (20.0-50.0); MEAN CORPUSCULAR HEMOGLOBIN 31.6 pg (28.0-32.0); MEAN CORPUSCULAR VOLUME 94.4 fL (81.0-99.0); MEAN PLATELET VOLUME 7.6 fl (7.4-10.4); MONOCYTES % 6.9 % (2.0-8.0); NEUTROPHILS % 72.3 % (40.0-76.0); PLATELET 266 x1000/uL (130-400); RED BLOOD CELL COUNT 4.57 mill/uL (4.2-5.4); RED CELL DISTRIBUTION WIDTH 13.4 % (11.6-14.6)
[2018-09-16 12:25] LABS: PARTIAL THROMBOPLASTIN TIME 27.1 sec (23.4-31.0); PROTHROMBIN TIME 9.7 sec (9.1-11.1)
[2018-09-16 12:29] LABS: CHLORIDE 94 mEq/L (98-107)
[2018-09-16] MEDS ORDERED: FUROSEMIDE 20MG/2ML VIAL IVP ONE (13:15)
[2018-09-16 15:15] LABS: CLARITY URINE CLEAR (CLEAR); COLOR URINE DARK YELLOW (YELLOW); KETONES URINE NEGATIVE (NEGATIVE); LEUKOCYTE ESTERASE URINE NEGATIVE (NEGATIVE); NITRITE URINE NEGATIVE (NEGATIVE); OCCULT BLOOD URINE NEGATIVE (NEGATIVE); PROTEIN URINE NEGATIVE (NEGATIVE); SPECIFIC GRAVITY URINE 1.028 (1.005-1.030); UROBILINOGEN URINE 0.2 E.U./dL (0.2-1.0)
[2018-09-16 15:20] VITALS: BP 127/49
[2018-09-16 15:37] VITALS: BP 127/49
[2018-09-16 16:00] VITALS: BP 127/49
[2018-09-16] MEDS ORDERED: INFLUENZA VIRUS VACCINE(AFLURIA) 0.5ML SYR IM ONE (16:30)
[2018-09-16] MEDS ORDERED: ONDANSETRON HCL 4MG/2ML INJ IV PRN (17:45)
[2018-09-16] MEDS ORDERED: ACETAMINOPHEN 325MG TABLET PO PRN (17:45)
[2018-09-16] MEDS ORDERED: CLONIDINE 0.1MG TABLET PO PRN (17:45)
[2018-09-16] MEDS ORDERED: ACETAMINOPHEN 650MG SUPP PR PRN (17:45)
[2018-09-16] MEDS ORDERED: MAGNESIUM/ALUMINUM HYDROXIDE/SIMETHICONE 30ML UDC PO PRN (17:45)
[2018-09-16] MEDS ORDERED: DOCUSATE SODIUM 100MG CAPSULE PO PRN (17:45)
[2018-09-16] MEDS ORDERED: LORAZEPAM 0.5MG TABLET PO PRN (17:45)
[2018-09-16] MEDS ORDERED: IPRATROPIUM/ALBUTEROL 0.5-3(2.5)MG/3ML NEB INH PRN (17:45)
[2018-09-16] MEDS ORDERED: GUAIFENESIN 200MG/10ML SUGAR FREE UDC PO PRN (17:45)
[2018-09-16] MEDS ORDERED: NA PHOS,M-B/NA PHOS,DI-BA ENEMA 118ML PR PRN (17:45)
[2018-09-16] MEDS ORDERED: DIPHENHYDRAMINE 50MG/ML VIAL IV PRN (17:45)
[2018-09-16 18:29] LABS: BG BASE EXCESS 9.6 mmol/L (-2.0-2.0); BG CARBOXYHEMOGLOBIN 0.4 % (0.5-1.5); BG DEOXYHEMOGLOBIN 18.4 % (0.0-5.0); BG FRACTION INSPIRED OXYGEN 21; BG METHEMOGLOBIN 0.1 % (0.0-1.5); BG OXYGEN SATURATION 81.5 % (92.0-98.5); BG OXYHEMOGLOBIN 81.1 % (94.0-97.0); BG PCO2 71.3 mmHg (35.0-45.0); BG PH 7.345 (7.350-7.450); BG PO2 45.2 mmHg (75.0-100.0); BG SAMPLE SITE RIGHT BRACHIAL; BG TOTAL HEMOGLOBIN 13.1 g/dL (12.0-18.0); BG VENT MODE ROOM AIR
[2018-09-16] MEDS: AZITHROMYCIN 500 MG TABLET PO SCH (18:42)
[2018-09-16] MEDS: ENOXAPARIN 40MG/0.4ML SYR SUBCUT SCH (18:42)
[2018-09-16] MEDS: HYDROCODONE/ACETAMINOPHEN 5/325MG TABLET PO PRN (18:52)
[2018-09-16] MEDS ORDERED: TRAMADOL 50MG TABLET PO NR (19:15)
[2018-09-16] MEDS ORDERED: TRAMADOL 50MG TABLET PO PRN (19:15)
[2018-09-16 20:02] VITALS: BP 112/61
[2018-09-16] MEDS ORDERED: CLONAZEPAM 0.5MG TABLET PO PRN (20:30)
[2018-09-16] MEDS ORDERED: ZOLPIDEM TARTRATE 5MG TABLET PO PRN (20:30)
[2018-09-16] MEDS: METHYLPREDNISOLONE SOD SUCC 40 MG/ML VIAL IV SCH (21:07)
[2018-09-16] MEDS: CEFTRIAXONE 1 G PREMIX 50 ML IV SCH (21:09)
[2018-09-16] MEDS: NICOTINE 14MG PATCH TD SCH (21:09)
[2018-09-17] VITALS: BP 102/55
[2018-09-17 01:15] LABS: *AMPHETAMINES SCREEN URINE NEGATIVE (NEGATIVE); *BARBITURATES SCREEN URINE NEGATIVE (NEGATIVE); *BENZODIAZEPINES SCREEN URINE NEGATIVE (NEGATIVE); *COCAINE SCREEN URINE NEGATIVE (NEGATIVE); CANNABINOID URINE SCREEN NEGATIVE (NEGATIVE); METHADONE URINE SCREEN NEGATIVE (NEGATIVE); OPIATES URINE SCREEN PRESUMTIVE POSITIVE (NEGATIVE); PHENCYCLIDINE URINE SCREEN NEGATIVE (NEGATIVE)
[2018-09-17] MEDS: IPRATROPIUM/ALBUTEROL 0.5-3(2.5)MG/3ML NEB HHN SCH ×6 (02:24→21:06)
[2018-09-17 03:02] LABS: BG CARBOXYHEMOGLOBIN 0.7 % (0.5-1.5); BG DEOXYHEMOGLOBIN 1.3 % (0.0-5.0); BG FRACTION INSPIRED OXYGEN 35; BG HCO3 ACT 37.8 mmol/L (22.0-26.0); BG METHEMOGLOBIN 0.4 % (0.0-1.5); BG OXYGEN SATURATION 98.7 % (92.0-98.5); BG OXYHEMOGLOBIN 97.6 % (94.0-97.0); BG PCO2 74.5 mmHg (35.0-45.0); BG PH 7.323 (7.350-7.450); BG PO2 145.7 mmHg (75.0-100.0); BG SAMPLE SITE LEFT RADIAL; BG TOTAL HEMOGLOBIN 12.9 g/dL (12.0-18.0); BG VENT MODE MASK - BIPAP; BG VENT RATE 16 set
[2018-09-17 04:00] VITALS: BP 125/69
[2018-09-17] MEDS: METHYLPREDNISOLONE SOD SUCC 40 MG/ML VIAL IV SCH ×3 (04:32→19:35)
[2018-09-17 07:09] LABS: CHLORIDE 95 mEq/L (98-107)
[2018-09-17 07:19] LABS: LDL CHOLESTEROL 100 mg/dL (5-100)
[2018-09-17 07:20] LABS: HDL CHOLESTEROL 84 mg/dL (40-59); T4 FREE 0.91 ng/dL (0.76-1.46)
[2018-09-17 07:21] LABS: BASOPHILS % 0.3 % (0.0-2.0); HEMATOCRIT. 34.3 % (36.0-48.0); HEMOGLOBIN. 11.5 g/dL (12.0-16.0); LYMPHOCYTES % 8.4 % (20.0-50.0); MEAN CORPUSCULAR HEMOGLOBIN 31.6 pg (28.0-32.0); MEAN CORPUSCULAR VOLUME 94.5 fL (81.0-99.0); MEAN PLATELET VOLUME 7.9 fl (7.4-10.4); MONOCYTES % 2.5 % (2.0-8.0); NEUTROPHILS % 88.8 % (40.0-76.0); PLATELET 243 x1000/uL (130-400); RED BLOOD CELL COUNT 3.63 mill/uL (4.2-5.4); RED CELL DISTRIBUTION WIDTH 13.5 % (11.6-14.6)
[2018-09-17 08:00] VITALS: BP 126/75
[2018-09-17] MEDS: BUDESONIDE 0.5MG/2ML NEB HHN SCH ×2 (09:27→21:06)
[2018-09-17] MEDS: DULOXETINE HCL 60MG DR CAPSULE PO SCH (09:43)
[2018-09-17] MEDS: OMEPRAZOLE 20MG CAPSULE EXTENDED RELEASE PO SCH (09:43)
[2018-09-17] MEDS: BENAZEPRIL 10MG TABLET PO SCH (09:43)
[2018-09-17] MEDS: NICOTINE 14MG PATCH TD SCH (09:44)
[2018-09-17 10:57] LABS: BG BASE EXCESS 10.9 mmol/L (-2.0-2.0); BG CARBOXYHEMOGLOBIN 0.9 % (0.5-1.5); BG FRACTION INSPIRED OXYGEN 21; BG HCO3 ACT 38.5 mmol/L (22.0-26.0); BG METHEMOGLOBIN 0.2 % (0.0-1.5); BG OXYGEN SATURATION 87.9 % (92.0-98.5); BG OXYHEMOGLOBIN 86.9 % (94.0-97.0); BG PCO2 65.8 mmHg (35.0-45.0); BG PH 7.385 (7.350-7.450); BG PO2 51.5 mmHg (75.0-100.0); BG SAMPLE SITE RIGHT BRACHIAL; BG TOTAL HEMOGLOBIN 12.9 g/dL (12.0-18.0); BG VENT MODE ROOM AIR
[2018-09-17] MEDS ORDERED: IOHEXOL-300 100 ML BOTTLE ONE (11:06)
[2018-09-17 12:00] VITALS: BP_SYST 149; BP_SYST 166; BP_DIAS 70; BP_DIAS 89
[2018-09-17] MEDS ORDERED: MONTELUKAST SODIUM 10MG TABLET PO SCH (17:00)
[2018-09-17] MEDS: ENOXAPARIN 40MG/0.4ML SYR SUBCUT SCH (17:13)
[2018-09-17] MEDS: AZITHROMYCIN 500 MG TABLET PO SCH (17:13)
[2018-09-17] MEDS: CEFTRIAXONE 1 G PREMIX 50 ML IV SCH (19:35)
[2018-09-17 20:00] VITALS: BP 127/79
[2018-09-17] MEDS: HYDROCODONE/ACETAMINOPHEN 5/325MG TABLET PO PRN (21:21)
[2018-09-18] VITALS: BP 118/69
[2018-09-18] MEDS: IPRATROPIUM/ALBUTEROL 0.5-3(2.5)MG/3ML NEB HHN SCH ×5 (00:53→15:06)
[2018-09-18 04:00] VITALS: BP 134/72
[2018-09-18] MEDS: METHYLPREDNISOLONE SOD SUCC 40 MG/ML VIAL IV SCH ×2 (04:16→12:16)
[2018-09-18 05:57] LABS: HEMOGLOBIN 12.2 g/dL (12.0-16.0); MEAN CORPUSCULAR HEMOGLOBIN 31.4 pg (28.0-32.0); MEAN CORPUSCULAR VOLUME 95.3 fL (81.0-99.0); PLATELET 266 x1000/uL (130-400); RED BLOOD CELL COUNT 3.88 mill/uL (4.2-5.4); RED CELL DISTRIBUTION WIDTH 13.7 % (11.6-14.6)
[2018-09-18 06:31] LABS: CHLORIDE 96 mEq/L (98-107)
[2018-09-18 08:00] VITALS: BP 145/84
[2018-09-18] MEDS: BUDESONIDE 0.5MG/2ML NEB HHN SCH (08:08)
[2018-09-18 09:32] LABS: BG BASE EXCESS 10.1 mmol/L (-2.0-2.0); BG CARBOXYHEMOGLOBIN 0.8 % (0.5-1.5); BG DEOXYHEMOGLOBIN 2.2 % (0.0-5.0); BG FRACTION INSPIRED OXYGEN 28; BG HCO3 ACT 37.5 mmol/L (22.0-26.0); BG METHEMOGLOBIN 0.2 % (0.0-1.5); BG OXYGEN SATURATION 97.8 % (92.0-98.5); BG OXYHEMOGLOBIN 96.8 % (94.0-97.0); BG PCO2 64.6 mmHg (35.0-45.0); BG PH 7.382 (7.350-7.450); BG PO2 105.5 mmHg (75.0-100.0); BG SAMPLE SITE RIGHT RADIAL; BG TOTAL HEMOGLOBIN 12.7 g/dL (12.0-18.0); BG VENT MODE NASAL CANNULA
[2018-09-18] MEDS ORDERED: SODIUM POLYSTYRENE SULFONATE 15 G/60 ML BOT PO SCH (11:00)
[2018-09-18] MEDS: OMEPRAZOLE 20MG CAPSULE EXTENDED RELEASE PO SCH (11:31)
[2018-09-18] MEDS: DULOXETINE HCL 60MG DR CAPSULE PO SCH (11:31)
[2018-09-18] MEDS: BENAZEPRIL 10MG TABLET PO SCH (11:32)
[2018-09-18] MEDS: NICOTINE 14MG PATCH TD SCH (11:32)
[2018-09-18 12:22] VITALS: BP 138/80
[2018-09-19] MEDS ORDERED: FAMOTIDINE 20MG TABLET PO SCH (09:00)
[2018-09-19] MEDS ORDERED: HYDR-4009 PO (21:40)
[2018-09-19] MEDS ORDERED: PRED10TA23 PO (21:40)
[2018-09-19] MEDS ORDERED: MONT10TA21 PO (21:40)
[2018-09-19] MEDS ORDERED: ZOLP10TA2 PO (21:41)
== END 2018-09-18 15:45 | disposition home or self-care (01) | DRG 291 ==
LOC: ER 11:31 → 8WST 12:41 → EDBEDREQTM 12:45 → EDBEDREQ 12:45 → ENRESERV 14:21
PROVIDERS: ADMIT Internal Medicine; ATTEND Internal Medicine
PROC: 5A09357 Assistance with Respiratory Ventilation, Less than 24 Consecutive Hours, Continuous Positive Airway Pressure (ICD-10-PCS; principal; 2018-09-16)
DX: I11.0 Hypertensive heart disease with heart failure (principal); J96.92 Respiratory failure, unspecified with hypercapnia; J96.91 Respiratory failure, unspecified with hypoxia; J44.1 Chronic obstructive pulmonary disease with (acute) exacerbation; N39.0 Urinary tract infection, site not specified; E87.2 Acidosis; F11.20 Opioid dependence, uncomplicated; J84.9 Interstitial pulmonary disease, unspecified; I50.33 Acute on chronic diastolic (congestive) heart failure; R07.89 Other chest pain; Z99.81 Dependence on supplemental oxygen; E78.5 Hyperlipidemia, unspecified; E87.5 Hyperkalemia; R73.9 Hyperglycemia, unspecified; F17.210 Nicotine dependence, cigarettes, uncomplicated; F32.9 Major depressive disorder, single episode, unspecified; F41.9 Anxiety disorder, unspecified; G89.4 Chronic pain syndrome; Z91.19 Patient's noncompliance with other medical treatment and regimen; Z71.6 Tobacco abuse counseling; Z88.0 Allergy status to penicillin; Z88.2 Allergy status to sulfonamides; Z88.8 Allergy status to other drugs, medicaments and biological substances; Z79.899 Other long term (current) drug therapy
CPT/HCPCS: 36415; 36600; 71045; 71275; 80048; 80061; 80305; 82375; 82805; 83605; 83880; 84145; 84439; 84443; 84484; 85027; 87077; 87186; 90686; 93005; 93306; 94640; 94660; 96365; 96368; 96372; 96375; 97162; 99291; J0696; J1650; J1940; J1956; J2920; J2930; J3475; J7050; J7611; J7620; J7626; Q9967

== ENCOUNTER 2018-09-19 12:14 | Inpatient (IN) | payer MEDICARE ==
[~2018-09-19] VITALS: Ht 175.3 cm; Wt 59.0 kg
[~2018-09-19 12:14] MED LIST changes: -FLUT1DIS6 IH; -HYDR-3280 PO
[2018-09-19] MEDS ORDERED: METHYLPREDNISOLONE SOD SUCC 125 MG/2 ML VIAL IV STA (12:49)
[2018-09-19] MEDS ORDERED: IPRATROPIUM/ALBUTEROL 0.5-3(2.5)MG/3ML NEB HHN ONE ×2 (13:00→14:45)
[2018-09-19 13:01] LABS: HEMATOCRIT. 39.6 % (36.0-48.0); HEMOGLOBIN. 13.1 g/dL (12.0-16.0); MEAN CORPUSCULAR HEMOGLOBIN 31.3 pg (28.0-32.0); MEAN CORPUSCULAR VOLUME 94.7 fL (81.0-99.0); MEAN PLATELET VOLUME 7.5 fl (7.4-10.4); PLATELET 273 x1000/uL (130-400); RED BLOOD CELL COUNT 4.19 mill/uL (4.2-5.4); RED CELL DISTRIBUTION WIDTH 13.5 % (11.6-14.6)
[2018-09-19 13:03] LABS: CHLORIDE 96 mEq/L (98-107)
[2018-09-19 13:17] LABS: PLATELET ESTIMATE NORMAL
[2018-09-19 16:15] LABS: BG CARBOXYHEMOGLOBIN 0.9 % (0.5-1.5); BG DEOXYHEMOGLOBIN 4.4 % (0.0-5.0); BG FRACTION INSPIRED OXYGEN 28; BG HCO3 ACT 37.8 mmol/L (22.0-26.0); BG METHEMOGLOBIN 0.3 % (0.0-1.5); BG OXYGEN SATURATION 95.5 % (92.0-98.5); BG OXYHEMOGLOBIN 94.4 % (94.0-97.0); BG PCO2 73.7 mmHg (35.0-45.0); BG PH 7.328 (7.350-7.450); BG PO2 80.3 mmHg (75.0-100.0); BG SAMPLE SITE RIGHT BRACHIAL; BG TOTAL HEMOGLOBIN 13.3 g/dL (12.0-18.0); BG VENT MODE NASAL CANNULA
[2018-09-19] MEDS ORDERED: HYDR-4009 PO (21:40)
[2018-09-19] MEDS ORDERED: PRED10TA23 PO (21:40)
[2018-09-19] MEDS ORDERED: MONT10TA21 PO (21:40)
[2018-09-19] MEDS ORDERED: ZOLP10TA2 PO (21:41)
[2018-09-19 22:00] VITALS: BP 129/78
[2018-09-19] MEDS ORDERED: TEMAZEPAM 15MG CAPSULE PO PRN (22:15)
[2018-09-19] MEDS ORDERED: CLONIDINE 0.1MG TABLET PO PRN (22:15)
[2018-09-19] MEDS: METHYLPREDNISOLONE SOD SUCC 40 MG/ML VIAL IV SCH (23:00)
[2018-09-20] VITALS (7 sets, daily range): BP systolic 111–152; BP diastolic 66–102
[2018-09-20] MEDS: IPRATROPIUM/ALBUTEROL 0.5-3(2.5)MG/3ML NEB HHN SCH ×6 (01:52→21:04)
[2018-09-20] MEDS: METHYLPREDNISOLONE SOD SUCC 40 MG/ML VIAL IV SCH ×3 (06:14→21:31)
[2018-09-20 07:21] LABS: HEMATOCRIT. 36.5 % (36.0-48.0); HEMOGLOBIN. 12.1 g/dL (12.0-16.0); MEAN CORPUSCULAR HEMOGLOBIN 31.4 pg (28.0-32.0); MEAN CORPUSCULAR VOLUME 94.9 fL (81.0-99.0); MEAN PLATELET VOLUME 8.3 fl (7.4-10.4); PLATELET 238 x1000/uL (130-400); RED BLOOD CELL COUNT 3.85 mill/uL (4.2-5.4); RED CELL DISTRIBUTION WIDTH 13.4 % (11.6-14.6)
[2018-09-20 07:40] LABS: CHLORIDE 96 mEq/L (98-107)
[2018-09-20] MEDS: LOSARTAN POTASSIUM 50 MG TABLET PO SCH (08:00)
[2018-09-20] MEDS: OMEPRAZOLE 20MG CAPSULE EXTENDED RELEASE PO SCH (08:00)
[2018-09-20] MEDS: AZITHROMYCIN 500 MG TABLET PO SCH (08:00)
[2018-09-20] MEDS: MONTELUKAST SODIUM 10MG TABLET PO SCH (08:01)
[2018-09-20] MEDS: ENOXAPARIN 40MG/0.4ML SYR SUBCUT SCH ×2 (08:01→08:07)
[2018-09-20] MEDS: HYDROCODONE/ACETAMINOPHEN 5/325MG TABLET PO PRN (13:02)
[2018-09-20 16:37] LABS: PLATELET ESTIMATE NORMAL
[2018-09-20] MEDS: CLONAZEPAM 0.5MG TABLET PO SCH (20:17)
[2018-09-21] VITALS: BP 158/86
[2018-09-21] MEDS: IPRATROPIUM/ALBUTEROL 0.5-3(2.5)MG/3ML NEB HHN SCH ×5 (00:13→20:59)
[2018-09-21] MEDS: METHYLPREDNISOLONE SOD SUCC 40 MG/ML VIAL IV SCH ×3 (06:38→21:59)
[2018-09-21 08:00] VITALS: BP 152/93
[2018-09-21] MEDS: ENOXAPARIN 40MG/0.4ML SYR SUBCUT SCH (09:00)
[2018-09-21] MEDS ORDERED: DULO60CA44 PO (09:22)
[2018-09-21] MEDS: MONTELUKAST SODIUM 10MG TABLET PO SCH (09:22)
[2018-09-21] MEDS: LOSARTAN POTASSIUM 50 MG TABLET PO SCH (09:22)
[2018-09-21] MEDS: AZITHROMYCIN 500 MG TABLET PO SCH (09:22)
[2018-09-21] MEDS: OMEPRAZOLE 20MG CAPSULE EXTENDED RELEASE PO SCH (09:22)
[2018-09-21 12:00] VITALS: BP 138/79
[2018-09-21] MEDS: DULOXETINE HCL 60MG DR CAPSULE PO SCH (13:18)
[2018-09-21 16:00] VITALS: BP 143/77
[2018-09-21] MEDS: FAMOTIDINE 20MG TABLET PO SCH (16:59)
[2018-09-21] MEDS: HYDROCODONE/ACETAMINOPHEN 5/325MG TABLET PO PRN (16:59)
[2018-09-21 20:00] VITALS: BP 143/83
[2018-09-21] MEDS: CLONAZEPAM 0.5MG TABLET PO SCH (21:59)
[2018-09-22] VITALS: BP 150/84
[2018-09-22] MEDS: IPRATROPIUM/ALBUTEROL 0.5-3(2.5)MG/3ML NEB HHN SCH ×6 (00:31→21:40)
[2018-09-22 00:43] VITALS: BP 150/84
[2018-09-22 04:00] VITALS: BP_SYST 125; BP_SYST 144; BP_DIAS 80; BP_DIAS 89
[2018-09-22] MEDS: METHYLPREDNISOLONE SOD SUCC 40 MG/ML VIAL IV SCH ×3 (06:04→21:45)
[2018-09-22 08:00] VITALS: BP 146/74
[2018-09-22] MEDS: ENOXAPARIN 40MG/0.4ML SYR SUBCUT SCH (09:00)
[2018-09-22] MEDS: DULOXETINE HCL 60MG DR CAPSULE PO SCH (09:08)
[2018-09-22] MEDS: FAMOTIDINE 20MG TABLET PO SCH ×2 (09:09→21:54)
[2018-09-22] MEDS: MONTELUKAST SODIUM 10MG TABLET PO SCH (09:09)
[2018-09-22] MEDS: LOSARTAN POTASSIUM 50 MG TABLET PO SCH (09:09)
[2018-09-22 11:11] LABS: BG BASE EXCESS 10.2 mmol/L (-2.0-2.0); BG CARBOXYHEMOGLOBIN 1.1 % (0.5-1.5); BG DEOXYHEMOGLOBIN 1.4 % (0.0-5.0); BG FRACTION INSPIRED OXYGEN 30; BG HCO3 ACT 37.5 mmol/L (22.0-26.0); BG METHEMOGLOBIN 0.3 % (0.0-1.5); BG OXYGEN SATURATION 98.6 % (92.0-98.5); BG OXYHEMOGLOBIN 97.2 % (94.0-97.0); BG PCO2 62.5 mmHg (35.0-45.0); BG PH 7.396 (7.350-7.450); BG PO2 130.5 mmHg (75.0-100.0); BG SAMPLE SITE RIGHT RADIAL; BG TOTAL HEMOGLOBIN 13.6 g/dL (12.0-18.0); BG VENT MODE NASAL CANNULA
[2018-09-22] MEDS: HYDROCODONE/ACETAMINOPHEN 5/325MG TABLET PO PRN (11:51)
[2018-09-22 12:00] VITALS: BP 170/94
[2018-09-22] MEDS: AZITHROMYCIN 500 MG TABLET PO SCH (15:08)
[2018-09-22 16:13] LABS: HEMATOCRIT 39.3 % (36.0-48.0); MEAN CORPUSCULAR HEMOGLOBIN 31.3 pg (28.0-32.0); MEAN CORPUSCULAR VOLUME 94.5 fL (81.0-99.0); PLATELET 312 x1000/uL (130-400); RED BLOOD CELL COUNT 4.16 mill/uL (4.2-5.4); RED CELL DISTRIBUTION WIDTH 13.2 % (11.6-14.6)
[2018-09-22 16:19] LABS: CHLORIDE 95 mEq/L (98-107)
[2018-09-22 20:00] VITALS: BP 152/83
[2018-09-22] MEDS: CLONAZEPAM 0.5MG TABLET PO SCH (21:44)
[2018-09-23] VITALS: BP 144/89
[2018-09-23 04:00] VITALS: BP 154/92
[2018-09-23] MEDS: IPRATROPIUM/ALBUTEROL 0.5-3(2.5)MG/3ML NEB HHN SCH ×3 (05:20→11:57)
[2018-09-23] MEDS: METHYLPREDNISOLONE SOD SUCC 40 MG/ML VIAL IV SCH (05:56)
[2018-09-23 07:46] VITALS: BP 151/83
[2018-09-23 08:00] VITALS: BP 151/83
[2018-09-23] MEDS: AZITHROMYCIN 500 MG TABLET PO SCH (08:40)
[2018-09-23] MEDS: FAMOTIDINE 20MG TABLET PO SCH (08:40)
[2018-09-23] MEDS: LOSARTAN POTASSIUM 50 MG TABLET PO SCH (08:40)
[2018-09-23] MEDS: MONTELUKAST SODIUM 10MG TABLET PO SCH (08:40)
[2018-09-23] MEDS: DULOXETINE HCL 60MG DR CAPSULE PO SCH (08:40)
[2018-09-23] MEDS: ENOXAPARIN 40MG/0.4ML SYR SUBCUT SCH (08:41)
[2018-09-23 09:24] LABS: HEMATOCRIT 40.1 % (36.0-48.0); HEMOGLOBIN 13.2 g/dL (12.0-16.0); MEAN CORPUSCULAR HEMOGLOBIN 30.9 pg (28.0-32.0); MEAN CORPUSCULAR VOLUME 93.7 fL (81.0-99.0); PLATELET 287 x1000/uL (130-400); RED BLOOD CELL COUNT 4.28 mill/uL (4.2-5.4); RED CELL DISTRIBUTION WIDTH 13.2 % (11.6-14.6)
[2018-09-23 09:58] LABS: CHLORIDE 94 mEq/L (98-107)
[2018-09-23 12:00] VITALS: BP 171/59
== END 2018-09-23 14:43 | DRG 189 ==
LOC: ER 12:14 → 7WST 16:41 → ENRESERV 19:04 → 7WST 09-23 05:45
PROVIDERS: ADMIT Internal Medicine; ATTEND Internal Medicine
DX: J96.22 Acute and chronic respiratory failure with hypercapnia (principal); J44.1 Chronic obstructive pulmonary disease with (acute) exacerbation; F11.20 Opioid dependence, uncomplicated; J84.9 Interstitial pulmonary disease, unspecified; F41.9 Anxiety disorder, unspecified; D72.829 Elevated white blood cell count, unspecified; E78.5 Hyperlipidemia, unspecified; G89.29 Other chronic pain; F17.210 Nicotine dependence, cigarettes, uncomplicated; I10 Essential (primary) hypertension; Z91.19 Patient's noncompliance with other medical treatment and regimen; Z99.81 Dependence on supplemental oxygen; Z88.0 Allergy status to penicillin; Z88.1 Allergy status to other antibiotic agents; Z88.2 Allergy status to sulfonamides; Z79.899 Other long term (current) drug therapy
CPT/HCPCS: 36415; 36600; 71045; 80048; 82375; 82805; 83880; 84484; 85027; 93005; 94640; 96374; 99291; J1650; J2920; J2930; J7620

== ENCOUNTER 2018-10-22 11:55 | Emergency (ER) | payer MEDICARE ==
[~2018-10-22] VITALS: Ht 175.3 cm; Wt 59.0 kg
[~2018-10-22 11:55] MED LIST changes: +HYDR-4009 PO; +MONT10TA21 PO; +PRED10TA23 PO; +ZOLP10TA2 PO
[2018-10-22] MEDS ORDERED: IPRATROPIUM BROMIDE (0.02%) 0.5MG/2.5ML NEB HHN STA (12:34)
[2018-10-22] MEDS ORDERED: METHYLPREDNISOLONE SOD SUCC 125 MG/2 ML VIAL IV STA (12:34)
[2018-10-22] MEDS ORDERED: ALBUTEROL (0.083%) 2.5MG/3ML NEB HHN STA (12:34)
[2018-10-22] MEDS ORDERED: ONDANSETRON HCL 4MG/2ML INJ IV STA (12:34)
[2018-10-22] MEDS ORDERED: MORPHINE SULFATE 4 MG/ML CPJ (NOT FOR IM USE) IV STA (12:34)
[2018-10-22] MEDS ORDERED: MAGNESIUM 2 G PREMIX 50 ML IV ONE (12:45)
[2018-10-22] MEDS ORDERED: SODIUM CHLORIDE 0.9% 1,000 ML IV ONE (12:48)
[2018-10-22 13:21] LABS: BASOPHILS % 0.5 % (0.0-2.0); HEMATOCRIT. 37.2 % (36.0-48.0); HEMOGLOBIN. 12.2 g/dL (12.0-16.0); LYMPHOCYTES % 10.3 % (20.0-50.0); MEAN CORPUSCULAR HEMOGLOBIN 31.4 pg (28.0-32.0); MEAN CORPUSCULAR VOLUME 95.3 fL (81.0-99.0); MONOCYTES % 8.4 % (2.0-8.0); NEUTROPHILS % 76.8 % (40.0-76.0); PLATELET 266 x1000/uL (130-400); RED CELL DISTRIBUTION WIDTH 13.6 % (11.6-14.6)
[2018-10-22 13:24] LABS: CHLORIDE 96 mEq/L (98-107)
[2018-10-22 13:25] LABS: PROTHROMBIN TIME 9.9 sec (9.1-11.1)
[2018-10-22] MEDS ORDERED: PREDNISONE 20MG TABLET PO ONE (14:45)
[2018-10-22 15:15] VITALS: BP 146/68
== END 2018-10-22 15:34 | disposition home or self-care (01) ==
LOC: ER 12:14
DX: J44.1 Chronic obstructive pulmonary disease with (acute) exacerbation (principal); I10 Essential (primary) hypertension; Z79.899 Other long term (current) drug therapy; Z88.0 Allergy status to penicillin; Z88.1 Allergy status to other antibiotic agents; Z88.2 Allergy status to sulfonamides
CPT/HCPCS: 36415; 71045; 80053; 83605; 83880; 84145; 84484; 85025; 85610; 87040; 93005; 94640; 96365; 96375; 99284; J2270; J2405; J2930; J3475; J7030; J7512; J7611

== ENCOUNTER 2018-10-31 12:45 | Emergency (ER) | payer MEDICARE ==
[~2018-10-31] VITALS: Ht 175.3 cm; Wt 55.0 kg
[2018-10-31] MEDS ORDERED: IPRATROPIUM BROMIDE (0.02%) 0.5MG/2.5ML NEB HHN STA (15:04)
[2018-10-31] MEDS ORDERED: ALBUTEROL (0.083%) 2.5MG/3ML NEB HHN STA (15:04)
[2018-10-31] MEDS ORDERED: ASPIRIN 81MG TABLET PO ONE (15:15)
[2018-10-31 15:50] LABS: BASOPHILS % 0.3 % (0.0-2.0); EOSINOPHILS % 1.5 % (0.0-5.0); HEMATOCRIT. 38.4 % (36.0-48.0); HEMOGLOBIN. 12.6 g/dL (12.0-16.0); LYMPHOCYTES % 9.4 % (20.0-50.0); MEAN CORPUSCULAR HEMOGLOBIN 31.1 pg (28.0-32.0); MEAN CORPUSCULAR VOLUME 94.8 fL (81.0-99.0); MEAN PLATELET VOLUME 7.8 fl (7.4-10.4); MONOCYTES % 5.5 % (2.0-8.0); NEUTROPHILS % 83.3 % (40.0-76.0); PLATELET 305 x1000/uL (130-400); RED BLOOD CELL COUNT 4.04 mill/uL (4.2-5.4); RED CELL DISTRIBUTION WIDTH 13.6 % (11.6-14.6)
[2018-10-31 15:54] LABS: CHLORIDE 94 mEq/L (98-107)
[2018-10-31 17:20] VITALS: BP 138/90
== END 2018-10-31 17:15 | disposition home or self-care (01) ==
LOC: ER 12:45 → EDBEDREQ 15:15 → ER 17:15 → CANBEDREQ 22:51
DX: J44.1 Chronic obstructive pulmonary disease with (acute) exacerbation (principal); F32.9 Major depressive disorder, single episode, unspecified; F20.9 Schizophrenia, unspecified; J45.909 Unspecified asthma, uncomplicated; Z79.899 Other long term (current) drug therapy; Z88.1 Allergy status to other antibiotic agents; Z88.0 Allergy status to penicillin; Z88.2 Allergy status to sulfonamides; Z88.8 Allergy status to other drugs, medicaments and biological substances
CPT/HCPCS: 36415; 71045; 80053; 83880; 84484; 85025; 93005; 94640; 99284; J7611

== ENCOUNTER 2018-11-07 11:19 | Inpatient (IN) | payer MEDICARE ==
[~2018-11-07] VITALS: Ht 175.3 cm; Wt 63.0 kg
[2018-11-07] MEDS ORDERED: IPRATROPIUM BROMIDE (0.02%) 0.5MG/2.5ML NEB HHN STA (15:27)
[2018-11-07] MEDS ORDERED: ALBUTEROL (0.083%) 2.5MG/3ML NEB HHN SCH (15:30)
[2018-11-07] MEDS ORDERED: KETOROLAC 30MG/ML VIAL IV ONE (15:30)
[2018-11-07 16:07] LABS: BASOPHILS % 0.2 % (0.0-2.0); EOSINOPHILS % 2.1 % (0.0-5.0); HEMATOCRIT. 36.7 % (36.0-48.0); HEMOGLOBIN. 12.1 g/dL (12.0-16.0); LYMPHOCYTES % 10.3 % (20.0-50.0); MEAN CORPUSCULAR HEMOGLOBIN 31.1 pg (28.0-32.0); MEAN CORPUSCULAR VOLUME 94.5 fL (81.0-99.0); MEAN PLATELET VOLUME 7.5 fl (7.4-10.4); MONOCYTES % 3.9 % (2.0-8.0); NEUTROPHILS % 83.5 % (40.0-76.0); PLATELET 258 x1000/uL (130-400); RED BLOOD CELL COUNT 3.89 mill/uL (4.2-5.4); RED CELL DISTRIBUTION WIDTH 13.1 % (11.6-14.6)
[2018-11-07 16:10] LABS: CHLORIDE 95 mEq/L (98-107)
[2018-11-07 16:12] LABS: PROTHROMBIN TIME 10.1 sec (9.1-11.1)
[2018-11-07] MEDS ORDERED: CEFTRIAXONE 2 G PREMIX 50 ML IV ONE (16:15)
[2018-11-07] MEDS ORDERED: AZITHROMYCIN 500 MG in DEXT 5% WATER 250 ML IV ONE (16:15)
[2018-11-07 17:08] LABS: BG BASE EXCESS 14.8 mmol/L (-2.0-2.0); BG CARBOXYHEMOGLOBIN 0.6 % (0.5-1.5); BG DEOXYHEMOGLOBIN 3.2 % (0.0-5.0); BG FRACTION INSPIRED OXYGEN 28; BG HCO3 ACT 43.8 mmol/L (22.0-26.0); BG METHEMOGLOBIN 0.1 % (0.0-1.5); BG OXYGEN SATURATION 96.8 % (92.0-98.5); BG OXYHEMOGLOBIN 96.1 % (94.0-97.0); BG PCO2 80.8 mmHg (35.0-45.0); BG PH 7.352 (7.350-7.450); BG PO2 95.9 mmHg (75.0-100.0); BG SAMPLE SITE RIGHT BRACHIAL; BG TOTAL HEMOGLOBIN 12.2 g/dL (12.0-18.0); BG VENT MODE NASAL CANNULA
[2018-11-08] MEDS ORDERED: DOCUSATE SODIUM 100MG CAPSULE PO PRN (00:30)
[2018-11-08] MEDS ORDERED: CLONIDINE 0.1MG TABLET PO PRN (00:30)
[2018-11-08] MEDS ORDERED: ACETAMINOPHEN 325MG TABLET PO PRN (00:30)
[2018-11-08] MEDS ORDERED: ONDANSETRON HCL 4MG/2ML INJ IV PRN (00:30)
[2018-11-08] MEDS: DEXT 5%/0.45% NACL 1000ML 1,000 ML IV SCH ×2 (08:00→16:33)
[2018-11-08] MEDS ORDERED: ASPIRIN 81MG EC TABLET PO SCH (09:00)
[2018-11-08] MEDS ORDERED: AZITHROMYCIN 500 MG TABLET PO SCH (09:00)
[2018-11-08] MEDS: ENOXAPARIN 40MG/0.4ML SYR SUBCUT SCH (09:51)
[2018-11-08] MEDS: IPRATROPIUM/ALBUTEROL 0.5-3(2.5)MG/3ML NEB INH SCH ×3 (11:12→21:33)
[2018-11-08 11:16] LABS: BG BASE EXCESS 9.7 mmol/L (-2.0-2.0); BG CARBOXYHEMOGLOBIN 0.4 % (0.5-1.5); BG DEOXYHEMOGLOBIN 2.5 % (0.0-5.0); BG FRACTION INSPIRED OXYGEN 32; BG HCO3 ACT 38.3 mmol/L (22.0-26.0); BG METHEMOGLOBIN 0.1 % (0.0-1.5); BG OXYGEN SATURATION 97.5 % (92.0-98.5); BG PCO2 73.9 mmHg (35.0-45.0); BG PH 7.332 (7.350-7.450); BG PO2 106.8 mmHg (75.0-100.0); BG SAMPLE SITE RIGHT BRACHIAL; BG TOTAL HEMOGLOBIN 12.2 g/dL (12.0-18.0); BG VENT MODE NASAL CANNULA
[2018-11-08] MEDS ORDERED: PRED2.5T4 MT (13:07)
[2018-11-08] MEDS ORDERED: ALBU18HF2 IH (13:09)
[2018-11-08] MEDS ORDERED: ALBU90AE INH (13:09)
[2018-11-08 13:28] VITALS: BP 147/84
[2018-11-08 14:00] VITALS: BP 141/92
[2018-11-08 16:00] VITALS: BP 126/73
[2018-11-08] MEDS ORDERED: CLONAZEPAM 0.5MG TABLET PO PRN (17:00)
[2018-11-08] MEDS ORDERED: ZOLPIDEM TARTRATE 5MG TABLET PO PRN (17:15)
[2018-11-08 18:00] VITALS: BP 139/79
[2018-11-08] MEDS: BUDESONIDE 0.5MG/2ML NEB HHN SCH (18:08)
[2018-11-08] MEDS ORDERED: BUDESONIDE 0.5MG/2ML NEB ONE (18:13)
[2018-11-08] MEDS ORDERED: IPRATROPIUM/ALBUTEROL 0.5-3(2.5)MG/3ML NEB ONE (18:13)
[2018-11-08] MEDS ORDERED: DEXTROSE 50% WATER 50ML SYRINGE IV PRN (18:15)
[2018-11-08] MEDS: HYDROCODONE/ACETAMINOPHEN 10/325MG TABLET PO PRN (19:07)
[2018-11-08] MEDS: METHYLPREDNISOLONE SOD SUCC 40 MG/ML VIAL IV SCH (19:32)
[2018-11-08 20:00] VITALS: BP 155/84
[2018-11-08] MEDS: BLOOD SUGAR DIAGNOSTIC STRIP TEST SCH (20:41)
[2018-11-08] MEDS: GUAIFENESIN 600MG ER TABLET PO SCH (20:41)
[2018-11-08] MEDS: MONTELUKAST SODIUM 10MG TABLET PO SCH (20:41)
[2018-11-08] MEDS: FAMOTIDINE 20MG/2ML VIAL IV SCH (20:41)
[2018-11-08] MEDS: ATORVASTATIN CALCIUM 10MG TABLET PO SCH (20:41)
[2018-11-08] MEDS: INSULIN LISPRO 100 UNITS/ML SUBCUT SCH (20:45)
[2018-11-08] MEDS ORDERED: BUDESONIDE 0.5MG/2ML NEB HHN SCH (21:00)
[2018-11-08 22:00] VITALS: BP 125/68
[2018-11-08] MEDS: CLONAZEPAM 0.5MG TABLET PO PRN (23:39)
[2018-11-09] VITALS (12 sets, daily range): BP systolic 124–159; BP diastolic 68–92
[2018-11-09] MEDS: IPRATROPIUM/ALBUTEROL 0.5-3(2.5)MG/3ML NEB INH SCH ×6 (01:08→20:01)
[2018-11-09] MEDS: ZOLPIDEM TARTRATE 5MG TABLET PO PRN (01:13)
[2018-11-09] MEDS: METHYLPREDNISOLONE SOD SUCC 40 MG/ML VIAL IV SCH ×3 (02:57→18:41)
[2018-11-09 07:35] LABS: HEMATOCRIT 36.7 % (36.0-48.0); HEMOGLOBIN 11.8 g/dL (12.0-16.0); MEAN CORPUSCULAR HEMOGLOBIN 30.6 pg (28.0-32.0); MEAN CORPUSCULAR VOLUME 95.2 fL (81.0-99.0); PLATELET 244 x1000/uL (130-400); RED BLOOD CELL COUNT 3.86 mill/uL (4.2-5.4); RED CELL DISTRIBUTION WIDTH 12.9 % (11.6-14.6)
[2018-11-09 07:42] LABS: CHLORIDE 97 mEq/L (98-107)
[2018-11-09 07:50] LABS: LDL CHOLESTEROL 84 mg/dL (5-100)
[2018-11-09 07:52] LABS: HDL CHOLESTEROL 86 mg/dL (40-59)
[2018-11-09] MEDS: BLOOD SUGAR DIAGNOSTIC STRIP TEST SCH ×4 (08:02→21:00)
[2018-11-09] MEDS: AZITHROMYCIN 500 MG in DEXT 5% WATER 250 ML IV SCH (08:35)
[2018-11-09] MEDS: ASPIRIN 81MG EC TABLET PO SCH (08:38)
[2018-11-09] MEDS: DULOXETINE HCL 60MG DR CAPSULE PO SCH (08:38)
[2018-11-09] MEDS: GUAIFENESIN 600MG ER TABLET PO SCH ×2 (08:38→21:57)
[2018-11-09] MEDS: LORATADINE 10MG TABLET PO SCH (08:39)
[2018-11-09] MEDS: FAMOTIDINE 20MG/2ML VIAL IV SCH ×2 (08:39→21:57)
[2018-11-09] MEDS: INSULIN LISPRO 100 UNITS/ML SUBCUT SCH ×4 (08:40→22:15)
[2018-11-09 10:11] LABS: BG BASE EXCESS 10.7 mmol/L (-2.0-2.0); BG CARBOXYHEMOGLOBIN 0.3 % (0.5-1.5); BG DEOXYHEMOGLOBIN 2.6 % (0.0-5.0); BG FRACTION INSPIRED OXYGEN 32; BG HCO3 ACT 39.2 mmol/L (22.0-26.0); BG METHEMOGLOBIN 0.3 % (0.0-1.5); BG OXYGEN SATURATION 97.4 % (92.0-98.5); BG OXYHEMOGLOBIN 96.8 % (94.0-97.0); BG PCO2 74.3 mmHg (35.0-45.0); BG PO2 102.4 mmHg (75.0-100.0); BG SAMPLE SITE RIGHT BRACHIAL; BG TOTAL HEMOGLOBIN 12.2 g/dL (12.0-18.0); BG VENT MODE NASAL CANNULA
[2018-11-09] MEDS: HYDROCODONE/ACETAMINOPHEN 10/325MG TABLET PO PRN ×2 (10:47→22:08)
[2018-11-09] MEDS: ENOXAPARIN 40MG/0.4ML SYR SUBCUT SCH (10:49)
[2018-11-09] MEDS: DOXYCYCLINE HYCLATE 100MG CAPSULE PO SCH (15:51)
[2018-11-09] MEDS: DEXT 5%/0.45% NACL 1000ML 1,000 ML IV SCH (15:52)
[2018-11-09] MEDS: MONTELUKAST SODIUM 10MG TABLET PO SCH (17:45)
[2018-11-09] MEDS: CLONAZEPAM 0.5MG TABLET PO PRN (21:57)
[2018-11-09] MEDS: ATORVASTATIN CALCIUM 10MG TABLET PO SCH (21:57)
[2018-11-10] VITALS: BP 151/77
[2018-11-10] MEDS: IPRATROPIUM/ALBUTEROL 0.5-3(2.5)MG/3ML NEB INH SCH ×6 (00:24→20:40)
[2018-11-10] MEDS: ZOLPIDEM TARTRATE 5MG TABLET PO PRN (01:12)
[2018-11-10 02:00] VITALS: BP 133/99
[2018-11-10] MEDS: DEXT 5%/0.45% NACL 1000ML 1,000 ML IV SCH (02:25)
[2018-11-10] MEDS: METHYLPREDNISOLONE SOD SUCC 40 MG/ML VIAL IV SCH ×3 (03:31→18:16)
[2018-11-10] MEDS: DOXYCYCLINE HYCLATE 100MG CAPSULE PO SCH ×2 (05:58→18:08)
[2018-11-10 06:00] VITALS: BP 138/76
[2018-11-10] MEDS: BLOOD SUGAR DIAGNOSTIC STRIP TEST SCH ×4 (07:30→21:15)
[2018-11-10 07:41] LABS: BG BASE EXCESS 12.6 mmol/L (-2.0-2.0); BG CARBOXYHEMOGLOBIN 0.3 % (0.5-1.5); BG DEOXYHEMOGLOBIN 1.8 % (0.0-5.0); BG HCO3 ACT 40.9 mmol/L (22.0-26.0); BG METHEMOGLOBIN 0.3 % (0.0-1.5); BG OXYGEN SATURATION 98.2 % (92.0-98.5); BG OXYHEMOGLOBIN 97.6 % (94.0-97.0); BG PCO2 75.4 mmHg (35.0-45.0); BG PH 7.352 (7.350-7.450); BG PO2 112.5 mmHg (75.0-100.0); BG SAMPLE SITE RIGHT BRACHIAL; BG TOTAL HEMOGLOBIN 11.1 g/dL (12.0-18.0); BG VENT MODE NASAL CANNULA
[2018-11-10 08:00] VITALS: BP 136/75
[2018-11-10] MEDS: LORATADINE 10MG TABLET PO SCH (08:37)
[2018-11-10] MEDS: GUAIFENESIN 600MG ER TABLET PO SCH ×2 (08:37→21:14)
[2018-11-10] MEDS: ASPIRIN 81MG EC TABLET PO SCH (08:37)
[2018-11-10] MEDS: DULOXETINE HCL 60MG DR CAPSULE PO SCH (08:37)
[2018-11-10] MEDS: FAMOTIDINE 20MG/2ML VIAL IV SCH ×2 (08:37→21:14)
[2018-11-10] MEDS: AZITHROMYCIN 500 MG in DEXT 5% WATER 250 ML IV SCH (08:38)
[2018-11-10] MEDS: INSULIN LISPRO 100 UNITS/ML SUBCUT SCH ×4 (08:38→21:27)
[2018-11-10] MEDS: HYDROCODONE/ACETAMINOPHEN 10/325MG TABLET PO PRN ×2 (08:52→18:09)
[2018-11-10 10:00] VITALS: BP 153/34
[2018-11-10] MEDS: ENOXAPARIN 40MG/0.4ML SYR SUBCUT SCH (10:12)
[2018-11-10 10:53] LABS: HEMATOCRIT. 34.8 % (36.0-48.0); HEMOGLOBIN. 11.4 g/dL (12.0-16.0); MEAN CORPUSCULAR HEMOGLOBIN 30.7 pg (28.0-32.0); MEAN CORPUSCULAR VOLUME 93.9 fL (81.0-99.0); MEAN PLATELET VOLUME 7.7 fl (7.4-10.4); PLATELET 261 x1000/uL (130-400); RED BLOOD CELL COUNT 3.71 mill/uL (4.2-5.4); RED CELL DISTRIBUTION WIDTH 13.1 % (11.6-14.6)
[2018-11-10 11:01] LABS: CHLORIDE 97 mEq/L (98-107)
[2018-11-10 11:39] LABS: PLATELET ESTIMATE NORMAL
[2018-11-10] MEDS: CLONAZEPAM 0.5MG TABLET PO PRN (12:22)
[2018-11-10] MEDS: BUDESONIDE 0.5MG/2ML NEB HHN SCH (12:36)
[2018-11-10 16:09] LABS: CLARITY URINE CLEAR (CLEAR); COLOR URINE YELLOW (YELLOW); KETONES URINE NEGATIVE (NEGATIVE); LEUKOCYTE ESTERASE URINE NEGATIVE (NEGATIVE); NITRITE URINE NEGATIVE (NEGATIVE); OCCULT BLOOD URINE NEGATIVE (NEGATIVE); PROTEIN URINE NEGATIVE (NEGATIVE); SPECIFIC GRAVITY URINE 1.015 (1.005-1.030); UROBILINOGEN URINE 0.2 E.U./dL (0.2-1.0)
[2018-11-10 18:00] VITALS: BP 144/85
[2018-11-10] MEDS: MONTELUKAST SODIUM 10MG TABLET PO SCH (18:08)
[2018-11-10] MEDS: ATORVASTATIN CALCIUM 10MG TABLET PO SCH (21:14)
[2018-11-11] MEDS: IPRATROPIUM/ALBUTEROL 0.5-3(2.5)MG/3ML NEB INH SCH ×6 (00:47→20:17)
[2018-11-11] MEDS: ZOLPIDEM TARTRATE 5MG TABLET PO PRN (01:38)
[2018-11-11 01:45] VITALS: BP 144/100
[2018-11-11 04:00] VITALS: BP 135/79
[2018-11-11] MEDS: DOXYCYCLINE HYCLATE 100MG CAPSULE PO SCH ×2 (06:14→18:18)
[2018-11-11] MEDS: METHYLPREDNISOLONE SOD SUCC 40 MG/ML VIAL IV SCH ×2 (06:14→18:18)
[2018-11-11 06:52] LABS: HEMATOCRIT 34.3 % (36.0-48.0); HEMOGLOBIN 11.3 g/dL (12.0-16.0); MEAN CORPUSCULAR VOLUME 93.7 fL (81.0-99.0); PLATELET 272 x1000/uL (130-400); RED BLOOD CELL COUNT 3.66 mill/uL (4.2-5.4); RED CELL DISTRIBUTION WIDTH 12.7 % (11.6-14.6)
[2018-11-11 07:13] LABS: CHLORIDE 97 mEq/L (98-107)
[2018-11-11] MEDS: BLOOD SUGAR DIAGNOSTIC STRIP TEST SCH ×4 (07:36→21:00)
[2018-11-11] MEDS: INSULIN LISPRO 100 UNITS/ML SUBCUT SCH ×4 (07:36→21:00)
[2018-11-11] MEDS: BUDESONIDE 0.5MG/2ML NEB HHN SCH ×2 (07:56→20:16)
[2018-11-11] MEDS: GUAIFENESIN 600MG ER TABLET PO SCH ×3 (09:00→21:00)
[2018-11-11] MEDS: LORATADINE 10MG TABLET PO SCH (09:00)
[2018-11-11] MEDS: ASPIRIN 81MG EC TABLET PO SCH (09:00)
[2018-11-11] MEDS: ENOXAPARIN 40MG/0.4ML SYR SUBCUT SCH (09:11)
[2018-11-11] MEDS: FAMOTIDINE 20MG/2ML VIAL IV SCH ×2 (09:12→21:00)
[2018-11-11] MEDS: DULOXETINE HCL 60MG DR CAPSULE PO SCH (09:12)
[2018-11-11] MEDS: AZITHROMYCIN 500 MG in DEXT 5% WATER 250 ML IV SCH (09:13)
[2018-11-11] MEDS: HYDROCODONE/ACETAMINOPHEN 10/325MG TABLET PO PRN ×2 (11:14→20:00)
[2018-11-11 12:00] VITALS: BP 145/98
[2018-11-11] MEDS: MONTELUKAST SODIUM 10MG TABLET PO SCH (17:33)
[2018-11-11] MEDS: ATORVASTATIN CALCIUM 10MG TABLET PO SCH (21:00)
[2018-11-12] MEDS: CLONAZEPAM 0.5MG TABLET PO PRN (00:03)
[2018-11-12] MEDS: ZOLPIDEM TARTRATE 5MG TABLET PO PRN (00:03)
[2018-11-12] MEDS: IPRATROPIUM/ALBUTEROL 0.5-3(2.5)MG/3ML NEB INH SCH ×3 (00:14→10:52)
[2018-11-12] MEDS: DOXYCYCLINE HYCLATE 100MG CAPSULE PO SCH (06:00)
[2018-11-12] MEDS: METHYLPREDNISOLONE SOD SUCC 40 MG/ML VIAL IV SCH (06:46)
[2018-11-12] MEDS: BLOOD SUGAR DIAGNOSTIC STRIP TEST SCH (06:46)
[2018-11-12 08:00] VITALS: BP 164/108
[2018-11-12] MEDS: GUAIFENESIN 600MG ER TABLET PO SCH (08:41)
[2018-11-12] MEDS: DULOXETINE HCL 60MG DR CAPSULE PO SCH (08:41)
[2018-11-12] MEDS: FAMOTIDINE 20MG/2ML VIAL IV SCH (08:41)
[2018-11-12] MEDS: LORATADINE 10MG TABLET PO SCH (09:00)
[2018-11-12] MEDS ORDERED: AZITHROMYCIN 500 MG TABLET PO SCH (09:00)
[2018-11-12] MEDS: ASPIRIN 81MG EC TABLET PO SCH (09:00)
[2018-11-12 10:00] VITALS: BP 163/96
[2018-11-12] MEDS: ENOXAPARIN 40MG/0.4ML SYR SUBCUT SCH (10:00)
[2018-11-12] MEDS: HYDROCODONE/ACETAMINOPHEN 10/325MG TABLET PO PRN (10:46)
[2018-11-12] MEDS: BUDESONIDE 0.5MG/2ML NEB HHN SCH (10:52)
[2018-11-12 11:34] VITALS: BP_SYST 144; BP_SYST 155; BP_DIAS 83; BP_DIAS 95
[2018-11-12 12:00] VITALS: BP 144/83
== END 2018-11-12 13:30 | disposition home or self-care (01) | DRG 177 ==
LOC: ER 11:19 → EDBEDREQ 16:34 → EDBEDREQTM 16:34 → 5EST 17:29 → EDBEDREQTM 17:33 → EDBEDREQSVC 17:33 → EDBEDREQ 17:33 → CANRESERV 21:31 → ENRESERV 21:31 → ER 11-08 12:39
PROVIDERS: ADMIT Internal Medicine; ATTEND Internal Medicine
PROC: 5A09357 Assistance with Respiratory Ventilation, Less than 24 Consecutive Hours, Continuous Positive Airway Pressure (ICD-10-PCS; principal; 2018-11-07)
PROC: 5A09357 Assistance with Respiratory Ventilation, Less than 24 Consecutive Hours, Continuous Positive Airway Pressure (ICD-10-PCS; 2018-11-08)
PROC: 5A09357 Assistance with Respiratory Ventilation, Less than 24 Consecutive Hours, Continuous Positive Airway Pressure (ICD-10-PCS; 2018-11-09)
DX: J15.20 Pneumonia due to staphylococcus, unspecified (principal); J96.02 Acute respiratory failure with hypercapnia; J44.1 Chronic obstructive pulmonary disease with (acute) exacerbation; E87.2 Acidosis; F11.20 Opioid dependence, uncomplicated; J44.0 Chronic obstructive pulmonary disease with (acute) lower respiratory infection; N39.0 Urinary tract infection, site not specified; I10 Essential (primary) hypertension; E78.5 Hyperlipidemia, unspecified; E86.0 Dehydration; G89.4 Chronic pain syndrome; F32.9 Major depressive disorder, single episode, unspecified; R73.9 Hyperglycemia, unspecified; F17.210 Nicotine dependence, cigarettes, uncomplicated; Z91.19 Patient's noncompliance with other medical treatment and regimen; Z99.81 Dependence on supplemental oxygen; Z88.1 Allergy status to other antibiotic agents; Z88.2 Allergy status to sulfonamides; Z88.0 Allergy status to penicillin; Z79.899 Other long term (current) drug therapy
CPT/HCPCS: 36415; 36600; 71045; 80048; 80061; 82375; 82805; 82962; 83036; 84484; 85027; 87070; 87077; 87804; 93005; 94640; 94660; 96361; 96374; 97116; 97162; 97530; 99285; J0456; J0696; J1650; J1815; J1885; J2920; J3490; J7050; J7060; J7611; J7620; J7626

== ENCOUNTER 2018-11-21 13:08 | Emergency (ER) | payer MEDICARE ==
[~2018-11-21] VITALS: Ht 172.7 cm; Wt 55.0 kg
[~2018-11-21 13:08] MED LIST changes: +ALBU18HF2 IH; +ALBU90AE INH; -MONT10TA21 PO; -PRED10TA23 PO; +PRED2.5T4 MT; -ZOLP10TA6 PO
[2018-11-21] MEDS ORDERED: IPRATROPIUM BROMIDE (0.02%) 0.5MG/2.5ML NEB HHN STA (14:48)
[2018-11-21] MEDS ORDERED: METHYLPREDNISOLONE SOD SUCC 125 MG/2 ML VIAL IV STA (14:48)
[2018-11-21] MEDS ORDERED: ALBUTEROL (0.083%) 2.5MG/3ML NEB HHN STA (14:48)
[2018-11-21] MEDS ORDERED: ONDANSETRON HCL 4MG/2ML INJ IV ONE (15:00)
[2018-11-21] MEDS ORDERED: MAGNESIUM 2 G PREMIX 50 ML IV ONE (15:00)
[2018-11-21] MEDS ORDERED: MORPHINE SULFATE 4 MG/ML CPJ (NOT FOR IM USE) IV ONE (15:00)
[2018-11-21 15:05] LABS: HEMATOCRIT. 37.7 % (36.0-48.0); HEMOGLOBIN. 12.5 g/dL (12.0-16.0); MEAN CORPUSCULAR HEMOGLOBIN 31.2 pg (28.0-32.0); MEAN CORPUSCULAR VOLUME 93.8 fL (81.0-99.0); MEAN PLATELET VOLUME 7.6 fl (7.4-10.4); PLATELET 269 x1000/uL (130-400); RED BLOOD CELL COUNT 4.01 mill/uL (4.2-5.4); RED CELL DISTRIBUTION WIDTH 13.5 % (11.6-14.6)
[2018-11-21 15:11] LABS: CHLORIDE 93 mEq/L (98-107)
[2018-11-21 15:14] LABS: PARTIAL THROMBOPLASTIN TIME 27.5 sec (23.4-31.0); PROTHROMBIN TIME 9.8 sec (9.1-11.1)
[2018-11-21 15:38] LABS: PLATELET ESTIMATE NORMAL
[2018-11-21 16:20] VITALS: BP 105/65
== END 2018-11-21 16:25 | disposition home or self-care (01) ==
LOC: ER 13:08
DX: J44.1 Chronic obstructive pulmonary disease with (acute) exacerbation (principal); I10 Essential (primary) hypertension; I50.40 Unspecified combined systolic (congestive) and diastolic (congestive) heart failure; E87.8 Other disorders of electrolyte and fluid balance, not elsewhere classified; F31.9 Bipolar disorder, unspecified; Z87.01 Personal history of pneumonia (recurrent); Z88.0 Allergy status to penicillin; Z88.2 Allergy status to sulfonamides; Z79.899 Other long term (current) drug therapy
CPT/HCPCS: 36415; 71045; 80053; 83880; 84484; 85025; 85610; 85730; 93005; 94640; 96365; 96375; 99284; J2270; J2405; J2930; J3475; J7611

== ENCOUNTER 2018-11-23 08:12 | Inpatient (IN) | payer MEDICARE ==
[~2018-11-23] VITALS: Ht 172.7 cm; Wt 58.5 kg
[2018-11-23] MEDS ORDERED: ALBUTEROL (0.083%) 2.5MG/3ML NEB HHN STA ×2 (10:29→10:34)
[2018-11-23] MEDS ORDERED: METHYLPREDNISOLONE SOD SUCC 125 MG/2 ML VIAL IV STA (10:29)
[2018-11-23] MEDS ORDERED: IPRATROPIUM BROMIDE (0.02%) 0.5MG/2.5ML NEB HHN STA ×2 (10:29→10:34)
[2018-11-23] MEDS ORDERED: MORPHINE SULFATE 4 MG/ML CPJ (NOT FOR IM USE) IV ONE ×2 (10:30→12:15)
[2018-11-23] MEDS ORDERED: ONDANSETRON HCL 4MG/2ML INJ IV ONE ×2 (10:30→12:15)
[2018-11-23 11:44] LABS: CHLORIDE 93 mEq/L (98-107)
[2018-11-23 11:47] LABS: BASOPHILS % 0.4 % (0.0-2.0); EOSINOPHILS % 0.3 % (0.0-5.0); HEMATOCRIT. 38.3 % (36.0-48.0); HEMOGLOBIN. 12.7 g/dL (12.0-16.0); LYMPHOCYTES % 9.6 % (20.0-50.0); MEAN CORPUSCULAR HEMOGLOBIN 31.2 pg (28.0-32.0); MEAN CORPUSCULAR VOLUME 94.1 fL (81.0-99.0); MONOCYTES % 8.7 % (2.0-8.0); PLATELET 243 x1000/uL (130-400); RED BLOOD CELL COUNT 4.07 mill/uL (4.2-5.4); RED CELL DISTRIBUTION WIDTH 13.4 % (11.6-14.6)
[2018-11-23] MEDS: ONDANSETRON HCL 4MG/2ML INJ IV NR ×2 (12:31→12:39)
[2018-11-23] MEDS: MORPHINE SULFATE 4 MG/ML CPJ (NOT FOR IM USE) IV NR ×2 (12:31→15:17)
[2018-11-23] MEDS ORDERED: ONDANSETRON HCL 4MG/2ML INJ IV PRN (18:45)
[2018-11-23] MEDS ORDERED: DIPHENHYDRAMINE 50MG/ML VIAL IV PRN (18:45)
[2018-11-23] MEDS ORDERED: CLONIDINE 0.1MG TABLET PO PRN (18:45)
[2018-11-23] MEDS ORDERED: ACETAMINOPHEN 650MG SUPP PR PRN (18:45)
[2018-11-23] MEDS ORDERED: MAGNESIUM/ALUMINUM HYDROXIDE/SIMETHICONE 30ML UDC PO PRN (18:45)
[2018-11-23] MEDS ORDERED: IPRATROPIUM/ALBUTEROL 0.5-3(2.5)MG/3ML NEB INH PRN (18:45)
[2018-11-23] MEDS ORDERED: ACETAMINOPHEN 325MG TABLET PO PRN (18:45)
[2018-11-23 20:00] VITALS: BP 129/79
[2018-11-23] MEDS: METHYLPREDNISOLONE SOD SUCC 40 MG/ML VIAL IV SCH (20:41)
[2018-11-23] MEDS: HYDROCODONE/ACETAMINOPHEN 5/325MG TABLET PO PRN (20:41)
[2018-11-24 00:44] VITALS: BP 155/85
[2018-11-24] MEDS: LORAZEPAM 0.5MG TABLET PO PRN ×2 (03:10→22:41)
[2018-11-24 04:00] VITALS: BP 147/86
[2018-11-24 06:20] LABS: CLARITY URINE CLEAR (CLEAR); COLOR URINE YELLOW (YELLOW); KETONES URINE TRACE (NEGATIVE); LEUKOCYTE ESTERASE URINE NEGATIVE (NEGATIVE); NITRITE URINE NEGATIVE (NEGATIVE); OCCULT BLOOD URINE TRACE (NEGATIVE); PH URINE 5.5 (4.5-8.0); PROTEIN URINE TRACE (NEGATIVE); SPECIFIC GRAVITY URINE 1.024 (1.005-1.030); UROBILINOGEN URINE 0.2 E.U./dL (0.2-1.0)
[2018-11-24 06:21] LABS: HEMATOCRIT. 34.2 % (36.0-48.0); HEMOGLOBIN. 11.1 g/dL (12.0-16.0); MEAN CORPUSCULAR HEMOGLOBIN 30.7 pg (28.0-32.0); MEAN CORPUSCULAR VOLUME 94.4 fL (81.0-99.0); MEAN PLATELET VOLUME 7.4 fl (7.4-10.4); PLATELET 229 x1000/uL (130-400); RED BLOOD CELL COUNT 3.62 mill/uL (4.2-5.4); RED CELL DISTRIBUTION WIDTH 13.5 % (11.6-14.6)
[2018-11-24] MEDS: METHYLPREDNISOLONE SOD SUCC 40 MG/ML VIAL IV SCH ×3 (06:23→21:15)
[2018-11-24 06:41] LABS: CHLORIDE 95 mEq/L (98-107)
[2018-11-24 08:00] VITALS: BP 100/80
[2018-11-24] MEDS: IPRATROPIUM/ALBUTEROL 0.5-3(2.5)MG/3ML NEB INH SCH ×4 (08:41→20:41)
[2018-11-24] MEDS: HYDROCODONE/ACETAMINOPHEN 5/325MG TABLET PO PRN ×3 (08:49→18:36)
[2018-11-24 12:00] VITALS: BP 141/86
[2018-11-24] MEDS ORDERED: SODIUM POLYSTYRENE SULFONATE 15 G/60 ML BOT PO NR (13:15)
[2018-11-24] MEDS ORDERED: MEDICATION NOT ON FORMULARY EA (Benazepril Hcl 20 MG) PO SCH (13:15)
[2018-11-24] MEDS ORDERED: MEDICATION NOT ON FORMULARY EA (Clonazepam 0.5 MG) PO PRN (13:15)
[2018-11-24] MEDS ORDERED: MEDICATION NOT ON FORMULARY EA (Zolpidem Tartrate (Ambien) 10 MG) PO PRN (13:15)
[2018-11-24] MEDS ORDERED: CLONAZEPAM 0.5MG TABLET PO PRN (13:30)
[2018-11-24] MEDS: OMEPRAZOLE 20MG CAPSULE EXTENDED RELEASE PO SCH (13:50)
[2018-11-24] MEDS: DULOXETINE HCL 60MG DR CAPSULE PO SCH (13:50)
[2018-11-24] MEDS: BENAZEPRIL 10MG TABLET PO SCH (13:50)
[2018-11-24 14:32] LABS: PLATELET ESTIMATE NORMAL
[2018-11-24 16:00] VITALS: BP 147/82
[2018-11-24 20:00] VITALS: BP 146/90
[2018-11-24] MEDS: ZOLPIDEM TARTRATE 5MG TABLET PO PRN (21:12)
[2018-11-25] VITALS: BP 138/72
[2018-11-25] MEDS: ZOLPIDEM TARTRATE 5MG TABLET PO PRN (00:59)
[2018-11-25] MEDS: IPRATROPIUM/ALBUTEROL 0.5-3(2.5)MG/3ML NEB INH SCH ×4 (01:31→16:22)
[2018-11-25] MEDS: METHYLPREDNISOLONE SOD SUCC 40 MG/ML VIAL IV SCH ×2 (05:43→13:29)
[2018-11-25] MEDS: OMEPRAZOLE 20MG CAPSULE EXTENDED RELEASE PO SCH (06:22)
[2018-11-25 06:56] LABS: HEMATOCRIT 34.8 % (36.0-48.0); HEMOGLOBIN 11.4 g/dL (12.0-16.0); MEAN CORPUSCULAR HEMOGLOBIN 30.4 pg (28.0-32.0); MEAN CORPUSCULAR VOLUME 92.9 fL (81.0-99.0); PLATELET 241 x1000/uL (130-400); RED BLOOD CELL COUNT 3.74 mill/uL (4.2-5.4); RED CELL DISTRIBUTION WIDTH 13.6 % (11.6-14.6)
[2018-11-25 07:16] LABS: CHLORIDE 96 mEq/L (98-107)
[2018-11-25 08:00] VITALS: BP 168/110
[2018-11-25] MEDS: DULOXETINE HCL 60MG DR CAPSULE PO SCH (09:52)
[2018-11-25] MEDS: LORAZEPAM 0.5MG TABLET PO PRN (09:52)
[2018-11-25] MEDS: BENAZEPRIL 10MG TABLET PO SCH (09:53)
[2018-11-25 10:46] VITALS: BP 168/110
[2018-11-25] MEDS: HYDROCODONE/ACETAMINOPHEN 5/325MG TABLET PO PRN (11:32)
[2018-11-25 12:00] VITALS: BP 106/75
[2018-11-25] MEDS: DOCUSATE SODIUM 100MG CAPSULE PO SCH ×2 (13:29→17:55)
[2018-11-25 16:00] VITALS: BP 154/96
[2018-11-25] MEDS ORDERED: CARVEDILOL 3.125 MG TABLET PO NR (17:00)
[2018-11-25 17:48] VITALS: BP 154/96
[2018-11-25] MEDS ORDERED: CARVEDILOL 3.125 MG TABLET PO SCH (21:00)
== END 2018-11-25 18:22 | DRG 190 ==
LOC: ER 08:12 → 6WST 13:55 → ENRESERV 15:22 → ER 16:30 → 6WST 18:44 → UNDOADMIN 18:44
PROVIDERS: ADMIT Internal Medicine; ATTEND Internal Medicine
DX: J44.1 Chronic obstructive pulmonary disease with (acute) exacerbation (principal); I50.33 Acute on chronic diastolic (congestive) heart failure; N39.0 Urinary tract infection, site not specified; F11.20 Opioid dependence, uncomplicated; I11.0 Hypertensive heart disease with heart failure; F17.210 Nicotine dependence, cigarettes, uncomplicated; E78.5 Hyperlipidemia, unspecified; F41.9 Anxiety disorder, unspecified; F31.9 Bipolar disorder, unspecified; G89.4 Chronic pain syndrome; Z99.81 Dependence on supplemental oxygen; Z91.19 Patient's noncompliance with other medical treatment and regimen; Z88.0 Allergy status to penicillin; Z88.1 Allergy status to other antibiotic agents; Z88.2 Allergy status to sulfonamides; Z79.899 Other long term (current) drug therapy
CPT/HCPCS: 36415; 71045; 80048; 83880; 84484; 85027; 93005; 94640; 96374; 99285; J2270; J2405; J2920; J2930; J7611; J7620

== ENCOUNTER 2018-12-17 04:13 | Inpatient (IN) | payer MEDICARE ==
[2018-12-17] VITALS (27 sets, daily range): BP systolic 75–242; BP diastolic 55–211
[~2018-12-17] VITALS: Ht 175.3 cm; Wt 63.5 kg
[2018-12-17] MEDS ORDERED: METHYLPREDNISOLONE SOD SUCC 125 MG/2 ML VIAL IV STA (04:29)
[2018-12-17] MEDS ORDERED: MORPHINE SULFATE 4 MG/ML CPJ (NOT FOR IM USE) IV STA (04:29)
[2018-12-17] MEDS ORDERED: SODIUM CHLORIDE 0.9% 1,000 ML IV ONE (04:29)
[2018-12-17] MEDS ORDERED: ONDANSETRON HCL 4MG/2ML INJ IV STA (04:29)
[2018-12-17] MEDS ORDERED: VANCOMYCIN 1 G PREMIX 200 ML IV ONE (04:30)
[2018-12-17] MEDS: IPRATROPIUM/ALBUTEROL 0.5-3(2.5)MG/3ML NEB HHN ONE ×2 (05:10→05:12)
[2018-12-17 05:19] LABS: CHLORIDE 91 mEq/L (98-107)
[2018-12-17 05:26] LABS: HEMATOCRIT. 36.8 % (36.0-48.0); MEAN CORPUSCULAR HEMOGLOBIN 30.6 pg (28.0-32.0); MEAN CORPUSCULAR VOLUME 93.5 fL (81.0-99.0); MEAN PLATELET VOLUME 6.9 fl (7.4-10.4); PLATELET 426 x1000/uL (130-400); RED BLOOD CELL COUNT 3.93 mill/uL (4.2-5.4); RED CELL DISTRIBUTION WIDTH 13.1 % (11.6-14.6)
[2018-12-17 05:28] LABS: PARTIAL THROMBOPLASTIN TIME 27.7 sec (23.4-31.0)
[2018-12-17 05:59] LABS: PLATELET ESTIMATE SLIGHTLY INCREASED
[2018-12-17 06:33] LABS: BG BASE EXCESS 12.4 mmol/L (-2.0-2.0); BG CARBOXYHEMOGLOBIN 0.6 % (0.5-1.5); BG DEOXYHEMOGLOBIN 15.1 % (0.0-5.0); BG HCO3 ACT 44.7 mmol/L (22.0-26.0); BG METHEMOGLOBIN 0.1 % (0.0-1.5); BG OXYGEN SATURATION 84.8 % (92.0-98.5); BG OXYHEMOGLOBIN 84.2 % (94.0-97.0); BG PH 7.196 (7.350-7.450); BG PO2 57.1 mmHg (75.0-100.0); BG SAMPLE SITE RIGHT RADIAL; BG TOTAL HEMOGLOBIN 11.8 g/dL (12.0-18.0); BG VENT MODE NASAL CANNULA
[2018-12-17] MEDS ORDERED: DOCUSATE SODIUM 100MG CAPSULE PO PRN (13:30)
[2018-12-17] MEDS ORDERED: NA PHOS,M-B/NA PHOS,DI-BA ENEMA 118ML PR PRN (13:30)
[2018-12-17] MEDS ORDERED: DIPHENHYDRAMINE 50MG/ML VIAL IV PRN (13:30)
[2018-12-17] MEDS ORDERED: GUAIFENESIN 200MG/10ML SUGAR FREE UDC PO PRN (13:30)
[2018-12-17] MEDS ORDERED: HYDROCODONE/ACETAMINOPHEN 5/325MG TABLET PO PRN (13:30)
[2018-12-17] MEDS ORDERED: IPRATROPIUM/ALBUTEROL 0.5-3(2.5)MG/3ML NEB INH PRN (13:30)
[2018-12-17] MEDS ORDERED: ONDANSETRON HCL 4MG/2ML INJ IV PRN (13:30)
[2018-12-17] MEDS ORDERED: ACETAMINOPHEN 650MG SUPP PR PRN (13:30)
[2018-12-17] MEDS ORDERED: ACETAMINOPHEN 325MG TABLET PO PRN (13:30)
[2018-12-17] MEDS ORDERED: MAGNESIUM/ALUMINUM HYDROXIDE/SIMETHICONE 30ML UDC PO PRN (13:30)
[2018-12-17] MEDS ORDERED: SODIUM CHLORIDE 0.45% 1,000 ML IV SCH (13:30)
[2018-12-17] MEDS ORDERED: LORAZEPAM 0.5MG TABLET PO PRN (13:30)
[2018-12-17 13:51] LABS: BG BASE EXCESS 10.3 mmol/L (-2.0-2.0); BG BILEVEL POS AIRWAY PRESSURE 18/8; BG CARBOXYHEMOGLOBIN 0.4 % (0.5-1.5); BG DEOXYHEMOGLOBIN 1.4 % (0.0-5.0); BG HCO3 ACT 41.8 mmol/L (22.0-26.0); BG METHEMOGLOBIN 0.3 % (0.0-1.5); BG OXYGEN SATURATION 98.6 % (92.0-98.5); BG OXYHEMOGLOBIN 97.9 % (94.0-97.0); BG PCO2 106.3 mmHg (35.0-45.0); BG PH 7.213 (7.350-7.450); BG SAMPLE SITE RIGHT BRACHIAL; BG VENT MODE MASK - BIPAP; BG VENT RATE 24 set
[2018-12-17] MEDS ORDERED: MORPHINE SULFATE 4 MG/ML CPJ (NOT FOR IM USE) IV PRN (14:15)
[2018-12-17] MEDS ORDERED: METHYLPREDNISOLONE SOD SUCC 125 MG/2 ML VIAL IV SCH (14:30)
[2018-12-17] MEDS: PROPOFOL 10MG/ML 100ML 100 ML IV PRN ×3 (15:00→23:06)
[2018-12-17] MEDS: ENOXAPARIN 40MG/0.4ML SYR SUBCUT SCH (15:00)
[2018-12-17] MEDS ORDERED: MAGNESIUM 1 G PREMIX 100 ML IV SCH (15:00)
[2018-12-17] MEDS: PANTOPRAZOLE SODIUM 40 MG/VIAL IV SCH (15:10)
[2018-12-17] MEDS: DEXT 5%/0.45% NACL 1000ML 1,000 ML IV SCH (15:12)
[2018-12-17 16:12] LABS: BG BASE EXCESS 8.9 mmol/L (-2.0-2.0); BG CARBOXYHEMOGLOBIN 0.4 % (0.5-1.5); BG FRACTION INSPIRED OXYGEN 45; BG HCO3 ACT 35.5 mmol/L (22.0-26.0); BG METHEMOGLOBIN 0.2 % (0.0-1.5); BG OXYHEMOGLOBIN 97.4 % (94.0-97.0); BG PCO2 59.1 mmHg (35.0-45.0); BG PH 7.396 (7.350-7.450); BG PO2 103.7 mmHg (75.0-100.0); BG SAMPLE SITE LEFT BRACHIAL; BG TIDAL VOLUME(mL) 450 mL; BG TOTAL HEMOGLOBIN 11.5 g/dL (12.0-18.0); BG VENT MODE VENT - A/C; BG VENT RATE 20 set
[2018-12-17] MEDS: MEROPENEM 1,000 MG in SODIUM CHLORIDE 0.9% 100 ML IV SCH (17:01)
[2018-12-17] MEDS: VANCOMYCIN 750 MG PREMIX 150 ML IV SCH (19:59)
[2018-12-17] MEDS: IPRATROPIUM/ALBUTEROL 0.5-3(2.5)MG/3ML NEB INH SCH ×2 (20:00→20:27)
[2018-12-17 20:08] LABS: HEMATOCRIT 30.6 % (36.0-48.0); MEAN CORPUSCULAR HEMOGLOBIN 29.8 pg (28.0-32.0); MEAN CORPUSCULAR VOLUME 91.8 fL (81.0-99.0); PLATELET 387 x1000/uL (130-400); RED BLOOD CELL COUNT 3.34 mill/uL (4.2-5.4); RED CELL DISTRIBUTION WIDTH 12.6 % (11.6-14.6)
[2018-12-17 20:17] LABS: CHLORIDE 93 mEq/L (98-107)
[2018-12-17 20:25] LABS: CREATINE KINASE 21 IU/L (26-192)
[2018-12-17 20:26] LABS: CREATINE KINASE MB FRACTION 1.6 ng/mL (0.5-3.6)
[2018-12-17] MEDS: METHYLPREDNISOLONE SOD SUCC 40 MG/ML VIAL IV SCH (22:05)
[2018-12-17] MEDS: LORAZEPAM 2MG/ML CPJ IV PRN (22:05)
[2018-12-18] VITALS (44 sets, daily range): BP systolic 101–142; BP diastolic 56–95
[2018-12-18] MEDS: IPRATROPIUM/ALBUTEROL 0.5-3(2.5)MG/3ML NEB INH SCH ×6 (00:15→20:13)
[2018-12-18] MEDS: LORAZEPAM 2MG/ML CPJ IV PRN ×2 (03:05→14:17)
[2018-12-18] MEDS: PROPOFOL 10MG/ML 100ML 100 ML IV PRN ×5 (04:22→22:45)
[2018-12-18] MEDS: MEROPENEM 1,000 MG in SODIUM CHLORIDE 0.9% 100 ML IV SCH (04:41)
[2018-12-18] MEDS ORDERED: VANCOMYCIN 1 G PREMIX 200 ML IV SCH (05:00)
[2018-12-18] MEDS: METHYLPREDNISOLONE SOD SUCC 40 MG/ML VIAL IV SCH ×3 (05:23→22:07)
[2018-12-18 05:36] LABS: HEMATOCRIT. 29.6 % (36.0-48.0); HEMOGLOBIN. 9.7 g/dL (12.0-16.0); MEAN CORPUSCULAR HEMOGLOBIN 30.2 pg (28.0-32.0); MEAN CORPUSCULAR VOLUME 91.8 fL (81.0-99.0); MEAN PLATELET VOLUME 7.5 fl (7.4-10.4); PLATELET 400 x1000/uL (130-400); RED BLOOD CELL COUNT 3.22 mill/uL (4.2-5.4); RED CELL DISTRIBUTION WIDTH 12.6 % (11.6-14.6)
[2018-12-18 06:19] LABS: CHLORIDE 92 mEq/L (98-107)
[2018-12-18 06:34] LABS: CREATINE KINASE MB FRACTION 1.2 ng/mL (0.5-3.6); LDL CHOLESTEROL 101 mg/dL (5-100); T4 FREE 1.21 ng/dL (0.76-1.46)
[2018-12-18 06:36] LABS: CREATINE KINASE 24 IU/L (26-192); HDL CHOLESTEROL 63 mg/dL (40-59)
[2018-12-18 06:54] LABS: PLATELET ESTIMATE NORMAL
[2018-12-18] MEDS: VANCOMYCIN 750 MG PREMIX 150 ML IV SCH ×2 (07:50→22:07)
[2018-12-18] MEDS: PANTOPRAZOLE SODIUM 40 MG/VIAL IV SCH (08:16)
[2018-12-18 08:53] LABS: BG BASE EXCESS 13.3 mmol/L (-2.0-2.0); BG CARBOXYHEMOGLOBIN 0.3 % (0.5-1.5); BG DEOXYHEMOGLOBIN 1.1 % (0.0-5.0); BG FRACTION INSPIRED OXYGEN 45; BG METHEMOGLOBIN 0.3 % (0.0-1.5); BG OXYGEN SATURATION 98.9 % (92.0-98.5); BG OXYHEMOGLOBIN 98.3 % (94.0-97.0); BG PCO2 56.4 mmHg (35.0-45.0); BG PH 7.458 (7.350-7.450); BG PO2 152.3 mmHg (75.0-100.0); BG SAMPLE SITE RIGHT RADIAL; BG TIDAL VOLUME(mL) 450 mL; BG TOTAL HEMOGLOBIN 10.4 g/dL (12.0-18.0); BG VENT MODE VENT - A/C; BG VENT RATE 20 set
[2018-12-18] MEDS: ENOXAPARIN 40MG/0.4ML SYR SUBCUT SCH (14:46)
[2018-12-18] MEDS: DEXT 5%/0.45% NACL 1000ML 1,000 ML IV SCH (16:05)
[2018-12-18] MEDS: MEROPENEM 1000MG in NORMAL SALINE 100ML IV SCH (18:13)
[2018-12-19] VITALS (54 sets, daily range): BP systolic 90–173; BP diastolic 53–101
[2018-12-19] MEDS: IPRATROPIUM/ALBUTEROL 0.5-3(2.5)MG/3ML NEB INH SCH ×6 (00:21→20:12)
[2018-12-19] MEDS: PROPOFOL 10MG/ML 100ML 100 ML IV PRN ×2 (03:13→08:42)
[2018-12-19] MEDS: METHYLPREDNISOLONE SOD SUCC 40 MG/ML VIAL IV SCH ×2 (06:00→17:00)
[2018-12-19] MEDS: MEROPENEM 1000MG in NORMAL SALINE 100ML IV SCH ×2 (07:20→17:33)
[2018-12-19] MEDS: PANTOPRAZOLE SODIUM 40 MG/VIAL IV SCH (08:42)
[2018-12-19] MEDS: VANCOMYCIN 750 MG PREMIX 150 ML IV SCH (08:43)
[2018-12-19] MEDS: LORAZEPAM 2MG/ML CPJ IV PRN ×2 (09:21→18:01)
[2018-12-19 11:45] LABS: BG BASE EXCESS 13.1 mmol/L (-2.0-2.0); BG CARBOXYHEMOGLOBIN 0.3 % (0.5-1.5); BG DEOXYHEMOGLOBIN 5.1 % (0.0-5.0); BG FRACTION INSPIRED OXYGEN 30; BG HCO3 ACT 38.6 mmol/L (22.0-26.0); BG METHEMOGLOBIN 0.2 % (0.0-1.5); BG OXYGEN SATURATION 94.9 % (92.0-98.5); BG OXYHEMOGLOBIN 94.4 % (94.0-97.0); BG PCO2 55.2 mmHg (35.0-45.0); BG PH 7.463 (7.350-7.450); BG PO2 79.3 mmHg (75.0-100.0); BG SAMPLE SITE RIGHT RADIAL; BG TIDAL VOLUME(mL) 450 mL; BG TOTAL HEMOGLOBIN 10.2 g/dL (12.0-18.0); BG VENT MODE VENT - A/C; BG VENT RATE 18 set
[2018-12-19] MEDS ORDERED: DEXTROSE 50% WATER 50ML SYRINGE IV PRN (12:45)
[2018-12-19] MEDS: FENTANYL CITRATE/PF 500 MCG in SODIUM CHLORIDE 0.9% 40 ML IV PRN ×3 (13:17→22:05)
[2018-12-19] MEDS: MIDAZOLAM HCL 50 MG in DEXTROSE 5% WATER 40 ML IV PRN ×3 (13:18→23:55)
[2018-12-19] MEDS: DEXT 5%/0.9% NACL 1,000 ML IV SCH ×2 (13:18→22:05)
[2018-12-19] MEDS: ENOXAPARIN 40MG/0.4ML SYR SUBCUT SCH (15:50)
[2018-12-19] MEDS: BLOOD SUGAR DIAGNOSTIC STRIP TEST SCH ×2 (17:00→20:41)
[2018-12-19] MEDS: INSULIN LISPRO 100 UNITS/ML SUBCUT SCH ×2 (17:01→20:45)
[2018-12-19 17:35] LABS: HEMATOCRIT. 28.1 % (36.0-48.0); HEMOGLOBIN. 9.3 g/dL (12.0-16.0); MEAN CORPUSCULAR HEMOGLOBIN 29.7 pg (28.0-32.0); MEAN CORPUSCULAR VOLUME 90.1 fL (81.0-99.0); PLATELET 405 x1000/uL (130-400); RED BLOOD CELL COUNT 3.12 mill/uL (4.2-5.4)
[2018-12-19 17:38] LABS: CHLORIDE 100 mEq/L (98-107)
[2018-12-19 17:48] LABS: PLATELET ESTIMATE INCREASED
[2018-12-19] MEDS: METOCLOPRAMIDE HCL 10MG/2ML VIAL IV SCH (23:04)
[2018-12-20] VITALS (97 sets, daily range): BP systolic 82–201; BP diastolic 39–124
[2018-12-20] MEDS: IPRATROPIUM/ALBUTEROL 0.5-3(2.5)MG/3ML NEB INH SCH ×6 (00:01→20:14)
[2018-12-20] MEDS: LORAZEPAM 2MG/ML CPJ IV PRN ×4 (00:08→19:57)
[2018-12-20] MEDS: VANCOMYCIN 1,000 MG in DEXT 5% WATER 250 ML IV SCH ×2 (03:07→20:44)
[2018-12-20] MEDS: FENTANYL CITRATE/PF 500 MCG in SODIUM CHLORIDE 0.9% 40 ML IV PRN ×3 (04:20→18:32)
[2018-12-20] MEDS: MORPHINE SULFATE 4 MG/ML CPJ (NOT FOR IM USE) IV PRN ×2 (05:22→21:59)
[2018-12-20] MEDS: MEROPENEM 1000MG in NORMAL SALINE 100ML IV SCH ×2 (05:55→18:32)
[2018-12-20] MEDS: BLOOD SUGAR DIAGNOSTIC STRIP TEST SCH ×4 (05:55→20:44)
[2018-12-20] MEDS: METOCLOPRAMIDE HCL 10MG/2ML VIAL IV SCH ×3 (05:55→23:11)
[2018-12-20] MEDS: METHYLPREDNISOLONE SOD SUCC 40 MG/ML VIAL IV SCH ×2 (05:55→18:32)
[2018-12-20] MEDS: INSULIN LISPRO 100 UNITS/ML SUBCUT SCH ×4 (06:03→21:00)
[2018-12-20 06:47] LABS: HEMATOCRIT 26.6 % (36.0-48.0); MEAN CORPUSCULAR VOLUME 92.1 fL (81.0-99.0); PLATELET 337 x1000/uL (130-400); RED BLOOD CELL COUNT 2.89 mill/uL (4.2-5.4); RED CELL DISTRIBUTION WIDTH 13.3 % (11.6-14.6)
[2018-12-20] MEDS: MIDAZOLAM HCL 50 MG in DEXTROSE 5% WATER 40 ML IV PRN ×2 (07:08→14:30)
[2018-12-20 07:27] LABS: CHLORIDE 103 mEq/L (98-107)
[2018-12-20 08:37] LABS: BG BASE EXCESS 9.1 mmol/L (-2.0-2.0); BG CARBOXYHEMOGLOBIN 0.3 % (0.5-1.5); BG DEOXYHEMOGLOBIN 1.9 % (0.0-5.0); BG FRACTION INSPIRED OXYGEN 40; BG HCO3 ACT 34.9 mmol/L (22.0-26.0); BG OXYGEN SATURATION 98.1 % (92.0-98.5); BG OXYHEMOGLOBIN 97.8 % (94.0-97.0); BG PCO2 55.3 mmHg (35.0-45.0); BG PH 7.418 (7.350-7.450); BG PO2 116.7 mmHg (75.0-100.0); BG SAMPLE SITE RIGHT RADIAL; BG TIDAL VOLUME(mL) 450 mL; BG TOTAL HEMOGLOBIN 9.1 g/dL (12.0-18.0); BG VENT MODE VENT - A/C; BG VENT RATE 18 set
[2018-12-20] MEDS: PANTOPRAZOLE SODIUM 40 MG/VIAL IV SCH (10:21)
[2018-12-20] MEDS: DEXT 5%/0.9% NACL 1,000 ML IV SCH ×2 (10:25→19:57)
[2018-12-20 14:01] LABS: BG BASE EXCESS 4.8 mmol/L (-2.0-2.0); BG CARBOXYHEMOGLOBIN 0.1 % (0.5-1.5); BG DEOXYHEMOGLOBIN 2.7 % (0.0-5.0); BG FRACTION INSPIRED OXYGEN 40; BG HCO3 ACT 33.5 mmol/L (22.0-26.0); BG METHEMOGLOBIN 0.5 % (0.0-1.5); BG OXYGEN SATURATION 97.3 % (92.0-98.5); BG OXYHEMOGLOBIN 96.7 % (94.0-97.0); BG PH 7.279 (7.350-7.450); BG PO2 115.5 mmHg (75.0-100.0); BG PRESSURE SUPPORT 8; BG SAMPLE SITE RIGHT RADIAL; BG TOTAL HEMOGLOBIN 11.5 g/dL (12.0-18.0); BG VENT MODE VENT - CPAP
[2018-12-20] MEDS: ENOXAPARIN 40MG/0.4ML SYR SUBCUT SCH (15:14)
[2018-12-20] MEDS ORDERED: LORAZEPAM 2MG/ML CPJ IV SCH (16:30)
[2018-12-20] MEDS ORDERED: LORAZEPAM 0.5MG TABLET PO PRN (17:30)
[2018-12-20 18:23] LABS: BG BASE EXCESS 6.4 mmol/L (-2.0-2.0); BG CARBOXYHEMOGLOBIN 0.3 % (0.5-1.5); BG DEOXYHEMOGLOBIN 2.8 % (0.0-5.0); BG FRACTION INSPIRED OXYGEN 40; BG HCO3 ACT 33.7 mmol/L (22.0-26.0); BG METHEMOGLOBIN 0.4 % (0.0-1.5); BG OXYGEN SATURATION 97.2 % (92.0-98.5); BG OXYHEMOGLOBIN 96.5 % (94.0-97.0); BG PH 7.326 (7.350-7.450); BG PO2 110.7 mmHg (75.0-100.0); BG PRESSURE SUPPORT 8; BG SAMPLE SITE RIGHT RADIAL; BG TOTAL HEMOGLOBIN 9.1 g/dL (12.0-18.0); BG VENT MODE VENT - CPAP
[2018-12-20 20:35] LABS: BG BASE EXCESS 7.3 mmol/L (-2.0-2.0); BG CARBOXYHEMOGLOBIN 0.3 % (0.5-1.5); BG DEOXYHEMOGLOBIN 1.4 % (0.0-5.0); BG FRACTION INSPIRED OXYGEN 40; BG HCO3 ACT 34.6 mmol/L (22.0-26.0); BG METHEMOGLOBIN 0.3 % (0.0-1.5); BG OXYGEN SATURATION 98.6 % (92.0-98.5); BG PCO2 63.5 mmHg (35.0-45.0); BG PH 7.354 (7.350-7.450); BG PO2 153.5 mmHg (75.0-100.0); BG SAMPLE SITE LEFT RADIAL; BG TOTAL HEMOGLOBIN 11.6 g/dL (12.0-18.0); BG VENT MODE MASK - AEROSOL
[2018-12-20] MEDS: CLONIDINE 0.1MG TABLET PO PRN (20:44)
[2018-12-21] VITALS (36 sets, daily range): BP systolic 116–178; BP diastolic 61–134
[2018-12-21] MEDS: LORAZEPAM 2MG/ML CPJ IV PRN ×3 (00:26→21:02)
[2018-12-21] MEDS: IPRATROPIUM/ALBUTEROL 0.5-3(2.5)MG/3ML NEB INH SCH ×6 (00:33→21:34)
[2018-12-21] MEDS: MORPHINE SULFATE 4 MG/ML CPJ (NOT FOR IM USE) IV PRN ×2 (02:19→16:48)
[2018-12-21 05:33] LABS: CHLORIDE 104 mEq/L (98-107)
[2018-12-21 05:36] LABS: HEMATOCRIT 30.2 % (36.0-48.0); MEAN CORPUSCULAR HEMOGLOBIN 30.5 pg (28.0-32.0); MEAN CORPUSCULAR VOLUME 91.9 fL (81.0-99.0); PLATELET 349 x1000/uL (130-400); RED BLOOD CELL COUNT 3.28 mill/uL (4.2-5.4); RED CELL DISTRIBUTION WIDTH 13.2 % (11.6-14.6)
[2018-12-21] MEDS: METHYLPREDNISOLONE SOD SUCC 40 MG/ML VIAL IV SCH ×2 (06:21→18:12)
[2018-12-21] MEDS: MEROPENEM 1000MG in NORMAL SALINE 100ML IV SCH ×2 (06:21→18:12)
[2018-12-21] MEDS: DEXT 5%/0.9% NACL 1,000 ML IV SCH (06:21)
[2018-12-21] MEDS: BLOOD SUGAR DIAGNOSTIC STRIP TEST SCH ×4 (06:22→21:02)
[2018-12-21] MEDS: INSULIN LISPRO 100 UNITS/ML SUBCUT SCH ×4 (06:39→21:00)
[2018-12-21 08:29] LABS: BG BASE EXCESS 5.6 mmol/L (-2.0-2.0); BG CARBOXYHEMOGLOBIN 0.1 % (0.5-1.5); BG DEOXYHEMOGLOBIN 1.6 % (0.0-5.0); BG FRACTION INSPIRED OXYGEN 35; BG METHEMOGLOBIN 0.3 % (0.0-1.5); BG OXYGEN SATURATION 98.4 % (92.0-98.5); BG PH 7.375 (7.350-7.450); BG SAMPLE SITE RIGHT RADIAL; BG TOTAL HEMOGLOBIN 11.1 g/dL (12.0-18.0); BG VENT MODE MASK - AEROSOL
[2018-12-21] MEDS: PANTOPRAZOLE SODIUM 40 MG/VIAL IV SCH (09:29)
[2018-12-21] MEDS: METOCLOPRAMIDE HCL 10MG/2ML VIAL IV SCH (11:57)
[2018-12-21] MEDS: ENOXAPARIN 40MG/0.4ML SYR SUBCUT SCH (15:16)
[2018-12-21] MEDS: VANCOMYCIN 1,000 MG in DEXT 5% WATER 250 ML IV SCH (15:16)
[2018-12-21] MEDS ORDERED: LORAZEPAM 0.5MG TABLET PO PRN (17:30)
[2018-12-21] MEDS ORDERED: HYDROCODONE/ACETAMINOPHEN 5/325MG TABLET PO PRN (17:30)
[2018-12-21] MEDS: CLONIDINE 0.1MG TABLET PO PRN (21:02)
[2018-12-21] MEDS: ZOLPIDEM TARTRATE 5MG TABLET PO PRN (23:59)
[2018-12-22] VITALS: BP 152/79
[2018-12-22] MEDS: IPRATROPIUM/ALBUTEROL 0.5-3(2.5)MG/3ML NEB INH SCH ×6 (01:10→22:22)
[2018-12-22 04:00] VITALS: BP 140/75
[2018-12-22] MEDS: MORPHINE SULFATE 4 MG/ML CPJ (NOT FOR IM USE) IV PRN (04:55)
[2018-12-22] MEDS: INSULIN LISPRO 100 UNITS/ML SUBCUT SCH ×4 (06:20→20:39)
[2018-12-22] MEDS: BLOOD SUGAR DIAGNOSTIC STRIP TEST SCH ×4 (06:20→20:39)
[2018-12-22] MEDS: MEROPENEM 1000MG in NORMAL SALINE 100ML IV SCH ×2 (06:20→17:41)
[2018-12-22 06:44] LABS: HEMATOCRIT 30.5 % (36.0-48.0); HEMOGLOBIN 9.9 g/dL (12.0-16.0); MEAN CORPUSCULAR HEMOGLOBIN 29.7 pg (28.0-32.0); MEAN CORPUSCULAR VOLUME 91.2 fL (81.0-99.0); PLATELET 352 x1000/uL (130-400); RED BLOOD CELL COUNT 3.34 mill/uL (4.2-5.4); RED CELL DISTRIBUTION WIDTH 12.9 % (11.6-14.6)
[2018-12-22 06:56] LABS: CHLORIDE 101 mEq/L (98-107)
[2018-12-22] MEDS: METHYLPREDNISOLONE SOD SUCC 40 MG/ML VIAL IV SCH (07:20)
[2018-12-22 08:00] VITALS: BP 157/79
[2018-12-22] MEDS: VANCOMYCIN 1,000 MG in DEXT 5% WATER 250 ML IV SCH (09:58)
[2018-12-22] MEDS: PANTOPRAZOLE SODIUM 40 MG/VIAL IV SCH (09:59)
[2018-12-22 12:00] VITALS: BP 124/79
[2018-12-22] MEDS: ENOXAPARIN 40MG/0.4ML SYR SUBCUT SCH (16:04)
[2018-12-22 20:00] VITALS: BP 122/62
[2018-12-22] MEDS: VANCOMYCIN 750 MG PREMIX 150 ML IV SCH (21:00)
[2018-12-22] MEDS: HYDROCODONE/ACETAMINOPHEN 5/325MG TABLET PO PRN (21:33)
[2018-12-23] VITALS: BP 133/68
[2018-12-23] MEDS: ZOLPIDEM TARTRATE 5MG TABLET PO PRN (00:19)
[2018-12-23] MEDS ORDERED: VANCOMYCIN 1 G PREMIX 200 ML IV SCH (03:00)
[2018-12-23 04:00] VITALS: BP 132/66
[2018-12-23] MEDS: IPRATROPIUM/ALBUTEROL 0.5-3(2.5)MG/3ML NEB INH SCH ×5 (05:04→20:32)
[2018-12-23] MEDS: BLOOD SUGAR DIAGNOSTIC STRIP TEST SCH ×4 (06:43→21:05)
[2018-12-23] MEDS: INSULIN LISPRO 100 UNITS/ML SUBCUT SCH (06:43)
[2018-12-23] MEDS: MEROPENEM 1000MG in NORMAL SALINE 100ML IV SCH ×2 (06:51→17:44)
[2018-12-23 07:18] LABS: CHLORIDE 102 mEq/L (98-107)
[2018-12-23 07:24] LABS: HEMATOCRIT 36.7 % (36.0-48.0); MEAN CORPUSCULAR HEMOGLOBIN 30.6 pg (28.0-32.0); MEAN CORPUSCULAR VOLUME 93.5 fL (81.0-99.0); RED BLOOD CELL COUNT 3.93 mill/uL (4.2-5.4); RED CELL DISTRIBUTION WIDTH 13.2 % (11.6-14.6)
[2018-12-23 08:00] VITALS: BP 136/50
[2018-12-23] MEDS: PANTOPRAZOLE SODIUM 40 MG/VIAL IV SCH (09:37)
[2018-12-23] MEDS: VANCOMYCIN 750 MG PREMIX 150 ML IV SCH ×2 (09:37→22:26)
[2018-12-23] MEDS: METHYLPREDNISOLONE SOD SUCC 40 MG/ML VIAL IV SCH (09:38)
[2018-12-23 10:35] LABS: PLATELET 238 x1000/uL (130-400)
[2018-12-23] MEDS: HYDROCODONE/ACETAMINOPHEN 5/325MG TABLET PO PRN ×2 (11:11→17:47)
[2018-12-23 12:00] VITALS: BP 129/81
[2018-12-23] MEDS: LORAZEPAM 0.5MG TABLET PO PRN (12:53)
[2018-12-23 16:00] VITALS: BP 128/78
[2018-12-23] MEDS: ENOXAPARIN 40MG/0.4ML SYR SUBCUT SCH (16:13)
[2018-12-23 20:00] VITALS: BP 116/70
[2018-12-24] VITALS: BP 133/60
[2018-12-24] MEDS: ZOLPIDEM TARTRATE 5MG TABLET PO PRN ×2 (00:27→23:43)
[2018-12-24] MEDS: IPRATROPIUM/ALBUTEROL 0.5-3(2.5)MG/3ML NEB INH SCH ×7 (00:31→23:19)
[2018-12-24 04:00] VITALS: BP_SYST 137; BP_SYST 176; BP_DIAS 68; BP_DIAS 99
[2018-12-24] MEDS: HYDROCODONE/ACETAMINOPHEN 5/325MG TABLET PO PRN ×2 (05:05→16:07)
[2018-12-24 06:38] LABS: HEMATOCRIT 30.8 % (36.0-48.0); HEMOGLOBIN 10.3 g/dL (12.0-16.0); MEAN CORPUSCULAR HEMOGLOBIN 30.7 pg (28.0-32.0); MEAN CORPUSCULAR VOLUME 92.2 fL (81.0-99.0); PLATELET 306 x1000/uL (130-400); RED BLOOD CELL COUNT 3.35 mill/uL (4.2-5.4); RED CELL DISTRIBUTION WIDTH 13.2 % (11.6-14.6)
[2018-12-24 06:39] LABS: CHLORIDE 99 mEq/L (98-107)
[2018-12-24] MEDS: MEROPENEM 1000MG in NORMAL SALINE 100ML IV SCH (06:43)
[2018-12-24] MEDS: BLOOD SUGAR DIAGNOSTIC STRIP TEST SCH ×4 (06:44→21:13)
[2018-12-24 08:00] VITALS: BP 146/84
[2018-12-24] MEDS: METHYLPREDNISOLONE SOD SUCC 40 MG/ML VIAL IV SCH (08:59)
[2018-12-24] MEDS: PANTOPRAZOLE SODIUM 40 MG/VIAL IV SCH (08:59)
[2018-12-24] MEDS: VANCOMYCIN 750 MG PREMIX 150 ML IV SCH (09:00)
[2018-12-24 12:00] VITALS: BP 165/84
[2018-12-24] MEDS: CLONIDINE 0.1MG TABLET PO PRN (13:18)
[2018-12-24] MEDS: ENOXAPARIN 40MG/0.4ML SYR SUBCUT SCH (15:18)
[2018-12-24 16:00] VITALS: BP 118/70
[2018-12-24 20:00] VITALS: BP 124/64
[2018-12-24] MEDS: GUAIFENESIN 600MG ER TABLET PO SCH (21:49)
[2018-12-24] MEDS: LORAZEPAM 0.5MG TABLET PO PRN (22:03)
[2018-12-25] VITALS (7 sets, daily range): BP systolic 112–166; BP diastolic 60–91
[2018-12-25] MEDS: IPRATROPIUM/ALBUTEROL 0.5-3(2.5)MG/3ML NEB INH SCH ×5 (05:06→20:40)
[2018-12-25] MEDS ORDERED: VANCOMYCIN 1 G PREMIX 200 ML IV SCH ×2 (06:00→23:00)
[2018-12-25] MEDS: HYDROCODONE/ACETAMINOPHEN 5/325MG TABLET PO PRN ×2 (06:21→14:09)
[2018-12-25] MEDS: BLOOD SUGAR DIAGNOSTIC STRIP TEST SCH ×4 (06:29→21:29)
[2018-12-25] MEDS: PREDNISONE 20MG TABLET PO SCH (09:57)
[2018-12-25] MEDS: GUAIFENESIN 600MG ER TABLET PO SCH ×2 (09:57→21:14)
[2018-12-25] MEDS: PANTOPRAZOLE SODIUM 40 MG/VIAL IV SCH (09:57)
[2018-12-25] MEDS ORDERED: FUROSEMIDE 40MG/4ML VIAL IVP SCH (11:15)
[2018-12-25] MEDS: ENOXAPARIN 40MG/0.4ML SYR SUBCUT SCH (16:15)
[2018-12-25] MEDS: ZOLPIDEM TARTRATE 5MG TABLET PO PRN (23:58)
[2018-12-26] VITALS: BP 109/52
[2018-12-26] MEDS: IPRATROPIUM/ALBUTEROL 0.5-3(2.5)MG/3ML NEB INH SCH ×6 (00:42→20:16)
[2018-12-26] MEDS: HYDROCODONE/ACETAMINOPHEN 5/325MG TABLET PO PRN ×2 (03:14→11:49)
[2018-12-26 04:00] VITALS: BP 122/63
[2018-12-26] MEDS ORDERED: MAGNESIUM 2 G PREMIX 50 ML IV SCH (04:00)
[2018-12-26] MEDS: BLOOD SUGAR DIAGNOSTIC STRIP TEST SCH ×2 (05:54→11:40)
[2018-12-26 08:00] VITALS: BP 137/61
[2018-12-26] MEDS: GUAIFENESIN 600MG ER TABLET PO SCH ×2 (08:43→21:58)
[2018-12-26] MEDS: PANTOPRAZOLE SODIUM 40 MG/VIAL IV SCH (08:43)
[2018-12-26] MEDS: PREDNISONE 20MG TABLET PO SCH (08:43)
[2018-12-26 12:00] VITALS: BP 144/81
[2018-12-26] MEDS: ENOXAPARIN 40MG/0.4ML SYR SUBCUT SCH (15:43)
[2018-12-26 16:00] VITALS: BP 135/73
[2018-12-26] MEDS: LORAZEPAM 0.5MG TABLET PO PRN (18:38)
[2018-12-26 20:00] VITALS: BP 130/73
[2018-12-27] VITALS: BP 134/69
[2018-12-27] MEDS: IPRATROPIUM/ALBUTEROL 0.5-3(2.5)MG/3ML NEB INH SCH ×4 (00:16→12:32)
[2018-12-27] MEDS ORDERED: ZOLPIDEM TARTRATE 5MG TABLET PO PRN (01:00)
[2018-12-27 04:00] VITALS: BP 140/65
[2018-12-27] MEDS: HYDROCODONE/ACETAMINOPHEN 5/325MG TABLET PO PRN ×2 (04:31→11:44)
[2018-12-27 06:36] LABS: HEMATOCRIT 31.4 % (36.0-48.0); HEMOGLOBIN 10.3 g/dL (12.0-16.0); MEAN CORPUSCULAR HEMOGLOBIN 30.2 pg (28.0-32.0); MEAN CORPUSCULAR VOLUME 92.2 fL (81.0-99.0); PLATELET 342 x1000/uL (130-400); RED BLOOD CELL COUNT 3.41 mill/uL (4.2-5.4); RED CELL DISTRIBUTION WIDTH 13.7 % (11.6-14.6)
[2018-12-27 07:32] LABS: CHLORIDE 97 mEq/L (98-107)
[2018-12-27 08:00] VITALS: BP 122/66
[2018-12-27] MEDS: GUAIFENESIN 600MG ER TABLET PO SCH (09:34)
[2018-12-27] MEDS: PANTOPRAZOLE SODIUM 40 MG/VIAL IV SCH (09:34)
[2018-12-27] MEDS: PREDNISONE 20MG TABLET PO SCH (09:34)
[2018-12-27 12:00] VITALS: BP 156/79
[2018-12-27 14:03] VITALS: BP 156/79
[2018-12-29] MEDS ORDERED: PREDNISONE 20MG TABLET PO SCH (09:00)
[2019-01-02] MEDS ORDERED: PREDNISONE 10MG TABLET PO SCH (09:00)
== END 2018-12-27 15:30 | disposition home or self-care (01) | DRG 208 ==
LOC: ER 04:13 → 5EST 05:54 → EDBEDREQTM 05:56 → EDBEDREQ 05:56 → CANRESERV 07:56 → ENRESERV 07:56 → EDBEDREQSVC 08:36 → ENRESERV 11:04 → MICUSO 14:37 → 5WST 12-21 13:25
PROVIDERS: ADMIT Internal Medicine; ATTEND Internal Medicine
PROC: 5A1945Z Respiratory Ventilation, 24-96 Consecutive Hours (ICD-10-PCS; principal; 2018-12-17)
PROC: 0BH17EZ Insertion of Endotracheal Airway into Trachea, Via Natural or Artificial Opening (ICD-10-PCS; 2018-12-17)
PROC: 5A09357 Assistance with Respiratory Ventilation, Less than 24 Consecutive Hours, Continuous Positive Airway Pressure (ICD-10-PCS; 2018-12-17)
PROC: 02HV33Z Insertion of Infusion Device into Superior Vena Cava, Percutaneous Approach (ICD-10-PCS; 2018-12-18)
PROC: B548ZZA Ultrasonography of Superior Vena Cava, Guidance (ICD-10-PCS; 2018-12-18)
DX: J96.22 Acute and chronic respiratory failure with hypercapnia (principal); J18.9 Pneumonia, unspecified organism; G93.41 Metabolic encephalopathy; J44.1 Chronic obstructive pulmonary disease with (acute) exacerbation; N39.0 Urinary tract infection, site not specified; J44.0 Chronic obstructive pulmonary disease with (acute) lower respiratory infection; F11.20 Opioid dependence, uncomplicated; E87.2 Acidosis; F41.9 Anxiety disorder, unspecified; E78.5 Hyperlipidemia, unspecified; I10 Essential (primary) hypertension; E86.0 Dehydration; G89.4 Chronic pain syndrome; F17.210 Nicotine dependence, cigarettes, uncomplicated; Z82.49 Family history of ischemic heart disease and other diseases of the circulatory system; Z91.19 Patient's noncompliance with other medical treatment and regimen; Z88.1 Allergy status to other antibiotic agents; Z88.0 Allergy status to penicillin; Z99.81 Dependence on supplemental oxygen; Z88.2 Allergy status to sulfonamides; Z88.8 Allergy status to other drugs, medicaments and biological substances; Z79.899 Other long term (current) drug therapy
CPT/HCPCS: 36415; 36569; 36600; 71045; 74018; 76937; 80048; 80061; 80202; 82375; 82550; 82553; 82805; 82962; 83036; 83605; 83735; 83880; 84132; 84439; 84443; 84478; 84484; 85007; 85027; 87070; 92610; 93005; 93970; 94640; 96365; 96375; 97116; 97162; 99285; C1725; C9113; J1200; J1650; J1815; J1940; J2060; J2185; J2250; J2270; J2405; J2704; J2765; J2920; J2930; J3010; J3370; J3475; J7030; J7040; J7042; J7050; J7060; J7512; J7620; A4315

== ENCOUNTER 2019-02-07 06:12 | Emergency (ER) | payer MEDICARE ==
[~2019-02-07] VITALS: Ht 177.8 cm; Wt 61.0 kg
[2019-02-07] MEDS ORDERED: SODIUM CHLORIDE 0.9% 1,000 ML IV ONE (09:00)
[2019-02-07 09:09] LABS: BASOPHILS % 0.2 % (0.0-2.0); EOSINOPHILS % 6.5 % (0.0-5.0); HEMATOCRIT. 35.9 % (36.0-48.0); HEMOGLOBIN. 11.6 g/dL (12.0-16.0); LYMPHOCYTES % 15.3 % (20.0-50.0); MEAN CORPUSCULAR HEMOGLOBIN 30.5 pg (28.0-32.0); MEAN CORPUSCULAR VOLUME 93.9 fL (81.0-99.0); MEAN PLATELET VOLUME 7.3 fl (7.4-10.4); PLATELET 411 x1000/uL (130-400); RED BLOOD CELL COUNT 3.82 mill/uL (4.2-5.4); RED CELL DISTRIBUTION WIDTH 15.4 % (11.6-14.6)
[2019-02-07 09:17] LABS: CHLORIDE 96 mEq/L (98-107)
[2019-02-07] MEDS ORDERED: ASPIRIN 325MG EC TABLET PO ONE (10:15)
[2019-02-07] MEDS ORDERED: IPRATROPIUM/ALBUTEROL 0.5-3(2.5)MG/3ML NEB HHN ONE (10:15)
[2019-02-07] MEDS ORDERED: ONDANSETRON HCL 4MG/2ML INJ IV ONE (11:30)
[2019-02-07] MEDS ORDERED: MORPHINE SULFATE 4 MG/ML CPJ (NOT FOR IM USE) IV ONE (11:30)
[2019-02-07 13:19] VITALS: BP 165/90
== END 2019-02-07 13:45 | disposition home or self-care (01) ==
LOC: ER 06:12
DX: T42.6X1A Poisoning by other antiepileptic and sedative-hypnotic drugs, accidental (unintentional), initial encounter (principal); R07.89 Other chest pain; R53.1 Weakness; J44.9 Chronic obstructive pulmonary disease, unspecified; Z88.3 Allergy status to other anti-infective agents; Z88.0 Allergy status to penicillin; Z88.2 Allergy status to sulfonamides; Y92.018 Other place in single-family (private) house as the place of occurrence of the external cause
CPT/HCPCS: 36415; 71045; 80053; 83880; 84484; 85025; 93005; 94640; 96374; 96375; 99284; J2270; J2405; J7030; J7620